=== PATIENT | male | born 1980 | race Caucasian/White ===

== ENCOUNTER → 2020-05-23 11:08 | Outpatient (BNVA) | payer OTHER, SELFPAY | PROVIDERS: PCP Hospitalist; Visit Provider Nurse Practitioner | DX: Z76.89 Persons encountering health services in other specified circumstances (principal) ==

== ENCOUNTER 2020-05-31 09:45 | Outpatient (REF) | payer OTHER, SELFPAY ==
[2020-05-31 10:47] LABS: Alanine Aminotransferase 53 U/L (0-40); Albumin Level 4.3 g/dL (3.5-5.0); Alkaline Phosphatase 103 U/L (39-117); Anion Gap 12 (12-20); Aspartate Amino Transferase 34 U/L (5-37); Bilirubin Total 0.6 mg/dL (0.0-1.0); Blood Urea Nitrogen 15 mg/dL (9-16); Calcium 8.9 mg/dL (8.4-10.2); Carbon Dioxide 26 mmol/L (22-29); Chloride 107 mmol/L (96-108); Estimated Glomerular Filt Rate > 60; Glucose Random 118 mg/dL (60-115); Potassium 4.4 mmol/l (3.3-5.1); Sodium 141 mmol/L (135-145); Total Protein 8.2 g/dL (6.5-8.0)
== END 2020-05-31 09:46 | disposition home or self-care (01) ==
LOC: HO.LAB 09:45
PROVIDERS: PCP Hospitalist; Visit Provider Nurse Practitioner
DX: R10.13 Epigastric pain (principal); R10.32 Left lower quadrant pain; K58.0 Irritable bowel syndrome with diarrhea
CPT/HCPCS: 80053

== ENCOUNTER 2020-06-01 08:04 | Outpatient (REF) | payer OTHER, SELFPAY ==
--- NOTE | 2020-06-01 08:10 | CT_ITS ---
EXAMINATION: CT ABDOMEN AND PELVIS WITH CONTRAST CLINICAL INFORMATION: Left lower quadrant pain. COMPARISON: None TECHNIQUE: Multidetector volumetric images were obtained from the superior aspect of the liver through the pubic symphysis following administration 85 mL of Omnipaque 350 intravenous contrast. Sagittal and coronal reformatted images were obtained on the technologist's workstation. Oral contrast: No This CT examination was performed using dose optimization techniques as appropriate, variously including the following: *Automated exposure control *Adjustment of mA and/or kV according to patient size (this includes techniques or standardized protocols for targeted exams where dose is matched to indication/reason for exam; i.e. extremities or head) *Use of iterative reconstruction technique DLP: 749 mGy-cm FINDINGS: LUNG BASES: The visualized lung bases are unremarkable. LIVER, GALLBLADDER, AND BILIARY TREE: Diffuse decreased attenuation without focal abnormality. PANCREAS: Unremarkable. SPLEEN: 12.2 cm without focal abnormality or significant change. ADRENAL GLANDS: Unremarkable. KIDNEYS AND URETERS: Unremarkable. BLADDER: Unremarkable. GASTROINTESTINAL TRACT: The stomach, small bowel, appendix and large bowel are unremarkable. ABDOMINAL WALL: No significant hernia is appreciated. LYMPH NODES: Normal. VASCULAR: Unremarkable. PELVIC VISCERA: Unremarkable. OSSEOUS STRUCTURES: Unremarkable. CT/CT abdomen pelvis w con IMPRESSION: Hepatic steatosis without other significant abnormality or change.
[2020-06-01] MEDS: iohexoL 350 MG/ML 100 ML INFUS..BTL IV (11:21)
[2020-06-01] MEDS: Barium Sulfate Oral (Berry) 450 ML ORAL.SUSP 900 ML PO (11:22)
== END 2020-06-01 08:05 | disposition home or self-care (01) ==
LOC: HO.CT 08:04
PROVIDERS: Visit Provider Nurse Practitioner
DX: R10.32 Left lower quadrant pain (principal)
CPT/HCPCS: 74177; Q9967

== ENCOUNTER → 2020-06-29 09:09 | Outpatient (BNVA) | payer OTHER, SELFPAY | PROVIDERS: PCP Hospitalist; Visit Provider Nurse Practitioner | DX: Z76.89 Persons encountering health services in other specified circumstances (principal) ==

== ENCOUNTER → 2020-07-21 10:34 | Outpatient (BNVA) | payer OTHER, SELFPAY | PROVIDERS: PCP Hospitalist; Visit Provider Nurse Practitioner ==

== ENCOUNTER → 2020-08-11 10:48 | Outpatient (BNVA) | payer OTHER, SELFPAY | PROVIDERS: PCP Hospitalist; Visit Provider Nurse Practitioner | DX: K58.0 Irritable bowel syndrome with diarrhea (principal); R10.32 Left lower quadrant pain; R10.13 Epigastric pain ==

== ENCOUNTER → 2020-09-22 10:33 | Outpatient (BNVA) | payer OTHER, SELFPAY | PROVIDERS: PCP Hospitalist; Visit Provider Nurse Practitioner ==

== ENCOUNTER → 2020-10-13 11:05 | Outpatient (BNVA) | payer OTHER, SELFPAY | PROVIDERS: PCP Hospitalist; Visit Provider Nurse Practitioner ==

== ENCOUNTER → 2020-11-09 08:11 | Outpatient (BNVA) | payer OTHER, SELFPAY | PROVIDERS: PCP Hospitalist; Visit Provider Surgery ==

== ENCOUNTER 2020-11-11 08:47 | Outpatient (REF) | payer BC, SELFPAY ==
--- NOTE | ~2020-11-11 | XR_ITS ---
EXAMINATION: XR CHEST CLINICAL INFORMATION: Morbid obesity COMPARISON: August 17, 2014 TECHNIQUE: 2 views of the chest were obtained. FINDINGS: No significant abnormality is noted involving the heart, lungs, mediastinum, bony thorax or soft tissues. XR/XR chest 2V IMPRESSION: No acute disease.
--- NOTE | 2020-11-11 08:58 | ECG_ITS ---
Test Reason : E66.01 Blood Pressure : / mmHG Vent. Rate : 064 BPM Atrial Rate : 064 BPM P-R Int : 174 ms QRS Dur : 096 ms QT Int : 412 ms P-R-T Axes : 046 032 021 degrees QTc Int : 425 ms Normal sinus rhythm Incomplete right bundle branch block Borderline ECG When compared to the previous EKG of No significant changes seen Referred By: Darius Arce Electronically Signed By:TAMMY RUBIO MD
[2020-11-11 09:58] LABS: MANUAL DIFF FLAG NO
[2020-11-11 10:08] LABS: Basophils Percent Auto 0.3 % (0-2); Eosinophils Absolute Auto 0.2 X10*3/uL (0.0-0.4); Eosinophils Percent Auto 3.5 % (0-4); Hematocrit 44.5 % (42-52); Hemoglobin 13.9 g/dl (14.0-18.0); Imm Gran Abs Auto 0.02 X10*3/uL (0.00-0.03); Imm Gran Pct Auto 0.3 % (0.0-0.4); Lymphocytes Absolute Auto 2.6 X10*3/uL (1.2-4.9); Lymphocytes Percent Auto 38.1 % (20-40); Mean Corpuscular HGB Conc 31.2 g/dl (31.0-36.0); Mean Corpuscular Hemoglobin 26.2 pg (27.0-33.0); Mean Platelet Volume 10.9 fL (9.4-12.4); Monocytes Absolute Auto 0.5 X10*3/uL (0.1-1.2); Monocytes Percent Auto 7.4 % (2-11); Neutrophils Absolute Auto 3.4 X10*3/uL (2.0-8.3); Neutrophils Percent Auto 50.4 % (45-73); Platelet Count 258 X10*3/uL (160-400); Red Cell Distribution Width 12.5 % (11.0-16.0); White Blood Count 6.8 X10*3/uL (4.8-10.8)
[2020-11-11 10:26] LABS: Alanine Aminotransferase 43 U/L (0-40); Albumin Level 4.1 g/dL (3.5-5.0); Alkaline Phosphatase 120 U/L (39-117); Anion Gap 13 (12-20); Aspartate Amino Transferase 36 U/L (5-37); Bilirubin Total 0.6 mg/dL (0.0-1.0); Blood Urea Nitrogen 11 mg/dL (9-16); Calcium 8.9 mg/dL (8.4-10.2); Carbon Dioxide 25 mmol/L (22-29); Chloride 108 mmol/L (96-108); Cholesterol 136 mg/dL; Estimated Glomerular Filt Rate > 60; Glucose Random 110 mg/dL (60-115); HDL Cholesterol 36 mg/dL; Iron 50 mcg/dL (45-160); LDL Cholesterol Calculated 83 mg/dl; Percent Iron Saturation 18 % (15-50); Potassium 4.8 mmol/L (3.3-5.1); Sodium 141 mmol/L (135-145); Total Iron Binding Capacity 279 mcg/dL (228-428); Total Protein 7.9 g/dL (6.5-8.0); Triglycerides 86 mg/dL; Unsaturated Iron Binding 229 ug/dL
[2020-11-11 10:31] LABS: Ferritin 318 ng/mL (20-250); TSH reflex Free T4 2.14 uIU/mL (0.32-4.0)
[2020-11-11 10:41] LABS: Estimated Average Glucose 126 mg/dL
[2020-11-11 10:45] LABS: Folate 14.1 ng/mL (> or = 4.0); Vitamin B12 447 pg/mL (200-900)
[2020-11-12 09:17] LABS: Insulin Level Total 20.2 uIU/mL
[2020-11-12 13:22] LABS: H Pylori Breath Test NOT DETECTED (NOT DETECTED)
[2020-11-15 02:46] LABS: Zinc 63 mcg/dL (60-130)
[2020-11-15 10:02] LABS: Calcium (PTHI) 9.2 mg/dL (8.6-10.3); PTHI 70 pg/mL (14-64)
[2020-11-16 11:03] LABS: Vitamin A 29 mcg/dL (38-98)
[2020-11-16 16:22] LABS: Vitamin B1 9 nmol/L (8-30)
== END 2020-11-11 08:48 | disposition home or self-care (01) ==
LOC: HO.LAB 08:47
PROVIDERS: PCP Hospitalist; Visit Provider Surgery
DX: E66.01 Morbid (severe) obesity due to excess calories (principal); K21.9 Gastro-esophageal reflux disease without esophagitis
CPT/HCPCS: 36415; 71046; 80053; 80061; 82306; 82607; 82728; 82746; 83013; 83036; 83525; 83540; 83970; 84425; 84443; 84590; 84630; 85025; 86140; 93005; 99211

== ENCOUNTER → 2020-11-14 09:51 | Outpatient (REF) | payer BC, OTHER, SELFPAY | LOC: HO.SL 09:51 | PROVIDERS: PCP Hospitalist; Visit Provider Family Medicine | DX: R06.83 Snoring (principal) | CPT/HCPCS: 95806 ==

== ENCOUNTER → 2020-11-18 11:28 | Outpatient (BNVA) | payer OTHER, SELFPAY | PROVIDERS: PCP Hospitalist; Referring Provider Hospitalist; Visit Provider Physician Assistant ==

== ENCOUNTER → 2020-11-25 12:33 | Outpatient (BNVA) | payer OTHER, SELFPAY | PROVIDERS: PCP Hospitalist; Visit Provider Physician Assistant ==

== ENCOUNTER → 2020-12-01 08:06 | Outpatient (BNVA) | payer BC, OTHER, SELFPAY | PROVIDERS: PCP Hospitalist; Visit Provider Dietitian, Registered | DX: E66.01 Morbid (severe) obesity due to excess calories (principal); Z68.41 Body mass index [BMI] 40.0-44.9, adult | CPT/HCPCS: 97802 ==

== ENCOUNTER → 2020-12-02 11:46 | Outpatient (BNVA) | payer OTHER, SELFPAY | PROVIDERS: PCP Hospitalist; Referring Provider Hospitalist; Visit Provider Physician Assistant ==

== ENCOUNTER 2020-12-06 08:16 | Outpatient (REF) | payer BC, OTHER, SELFPAY ==
--- NOTE | ~2020-12-06 | FL_ITS ---
EXAMINATION: XR GI SERIES CLINICAL INFORMATION: EXAMINATION: FLUOROSCOPY UPPER GI WITH AIR CLINICAL INFORMATION: Obesity due to excess calories. COMPARISON: None. TECHNIQUE: A double contrast examination was performed. Fluoroscopic evaluation and multiple spot films were obtained. FINDINGS: There is normal esophageal mucosa and motility. No reflux or hiatal hernia. Barium flows easily through a normal-appearing stomach, duodenal bulb, and sweep without evidence of ulcer or inflammation. FLUOROSCOPY TIME: 0.8 minutes. IMAGES: 17 spot images obtained. FL/FL upper GI series IMPRESSION: Unremarkable examination.
--- NOTE | ~2020-12-06 | US_ITS ---
EXAMINATION: US COMPLETE ABDOMEN WITH LIVER ELASTOGRAPHY CLINICAL INFORMATION: Obesity COMPARISON: Previous abdominal ultrasound August [address] of the abdomen and pelvis most recent May 2020 TECHNIQUE: Real-time imaging of the abdominal viscera. Noninvasive ultrasound liver fibrosis assessment is performed using Eriberto ElastPQ point quantification shear wave elastography (pSWE) with a C5-2 MHz transducer. Multiple elastography samples are obtained. FINDINGS: PANCREAS: Normal. ABDOMINAL AORTA: The proximal and middle aortic segments are normal in caliber. Distal abdominal aorta is not well visualized. INFERIOR VENA CAVA: Visualized portions are normal. LIVER: The liver is upper normal in size. Liver echotexture is increased. The contour of the liver is normal.. No focal lesion or intrahepatic biliary duct dilatation. The right lobe measures 17 cm in length. The left lobe measures 16 cm in length. Portal flow is normal/hepatopedal Shear wave liver elastography median stiffness is 1.6 m/s (reference: normal median stiffness is 1.3 m/s or less). IQR/median stiffness to assess sampling precision is 0.12 (reference: good quality data set is IQR/median stiffness of 0.15 or less). GALLBLADDER: Normal. The gallbladder is physiologically distended without evidence of stones, sludge, polyps, wall thickening or pericholecystic fluid. COMMON BILE DUCT: Normal in caliber measuring 0.5 cm in diameter. RIGHT KIDNEY: Normal. No hydronephrosis. No renal calculi or focal parenchymal lesions. The kidney measures 12.3 cm in maximum dimension. LEFT KIDNEY: Normal. No hydronephrosis. No renal calculi or focal parenchymal lesions. The kidney measures 13.6 cm in maximum dimension. SPLEEN: Normal. The spleen measures 12.8 cm in maximum dimension. FREE FLUID: None. US/US abdomen comp w elastography IMPRESSION: 1. Impression: Upper normal-size echogenic liver suggestive of fatty infiltration. 2. Liver elastography: Adequate liver sampling. In the absence of other known clinical signs, rules out compensated advanced chronic liver disease. REFERENCE: Society of Radiologists in Ultrasound Liver Stiffness Thresholds (2020): LIVER STIFFNESS THRESHOLDS: *Liver Stiffness equal or less than 1.3 m/s: High probability of being normal. *Liver Stiffness less than 1.7 m/s: In the absence of other known clinical signs, rules out compensated advanced chronic liver disease. *Liver Stiffness 1.7-2.1 m/s: Suggestive of compensated advanced chronic liver disease but need further test for confirmation. *Liver Stiffness over 2.1 m/s: Rules in compensated advanced chronic liver disease. *Liver Stiffness over 2.4 m/s: Suggestive of clinically significant portal hypertension. QUALITY OF DATA SET: *IQR/Median value equal or less than 0.15 implies a quality data set. *IQR/Median value over 0.15 implies a poor quality data set. SIGNIFICANT CHANGE FROM PRIOR EXAM: Significant change if liver stiffness measurement is 10% or greater from prior exam. OTHER CONSIDERATIONS: The stage of liver fibrosis may be overestimated in the setting of acute hepatitis, liver inflammation, elevated liver function tests, hepatic vascular congestion, obstructive cholestasis, non-fasting state, and infiltrative diseases such as amyloidosis and lymphoma. In some patients with NAFLD, the liver stiffness thresholds for compensated advanced chronic liver disease may be lower. In causes other than viral hepatitis and NAFLD, liver stiffness thresholds are not well established.
== END 2020-12-06 08:17 | disposition home or self-care (01) ==
LOC: HO.US 08:16
PROVIDERS: PCP Hospitalist; Visit Provider Surgery
DX: Z01.818 Encounter for other preprocedural examination (principal); E66.01 Morbid (severe) obesity due to excess calories; K21.9 Gastro-esophageal reflux disease without esophagitis
CPT/HCPCS: 74240; 76705; 76981

== ENCOUNTER 2020-12-06 12:37 | Emergency (ER) | payer BC, MEDICAID, SELFPAY ==
--- NOTE | ~2020-12-06 | CT_ITS ---
EXAMINATION: CT ABDOMEN AND PELVIS WITHOUT CONTRAST Clinical inflammation: Right flank pain. Nausea and vomiting. No images obtained. Patient unable to stay still.
--- NOTE | ~2020-12-06 | CT_ITS ---
EXAMINATION: CT ABDOMEN AND PELVIS WITHOUT CONTRAST CLINICAL INFORMATION: Right lower quadrant pain. COMPARISON: CT abdomen pelvis December 06, 2020, June 01, 2020 TECHNIQUE: Multidetector volumetric imaging was performed from the superior aspect of the liver through the pubic symphysis. Sagittal and coronal reformatted images were obtained on the technologist's workstation. This CT examination was performed using dose optimization techniques as appropriate, variously including the following: *Automated exposure control *Adjustment of mA and/or kV according to patient size (this includes techniques or standardized protocols for targeted exams where dose is matched to indication/reason for exam; i.e. extremities or head) *Use of iterative reconstruction technique DLP: 1100 mGy-cm FINDINGS: There is barium within the colon. Most of this is within the right colon and transverse colon with small volume of the descending colon and pelvis. The spurring causes streak artifact through the study. LUNG BASES: The visualized lung bases are unremarkable. LIVER, GALLBLADDER, AND BILIARY TREE: Low attenuation of liver parenchyma due to fatty change. The gallbladder is unremarkable with no evidence of radiopaque gallstones, gallbladder wall thickening, or obvious pericholecystic inflammatory changes. PANCREAS: Unremarkable. SPLEEN: Unremarkable. ADRENAL GLANDS: Unremarkable. KIDNEYS AND URETERS: The kidneys are normal in size, shape, and attenuation. No hydronephrosis, hydroureter, or calculi seen. No perinephric stranding. BLADDER: Unremarkable. GASTROINTESTINAL TRACT: Barium in the colon limits study. The appendix is nonvisualized. There is no focal abnormality of the large or small bowel evident. No bowel obstruction. No dilated bowel loop. MESENTERY: No free air or free fluid. No inflammation. ABDOMINAL WALL: No significant hernia is appreciated. LYMPH NODES: Normal. VASCULAR: Unremarkable. PELVIC VISCERA: Unremarkable. OSSEOUS STRUCTURES: Unremarkable. CT/CT abdomen pelvis wo con IMPRESSION: 1. Limited exam by barium in colon causing streak artifact. There is no evidence of free air, free fluid or inflammation the mesentery. The appendix specifically is not seen however. No abnormality of the bowel loops demonstrated. 2. Diffuse fatty change of liver.
[2020-12-06 13:40] VITALS: BP 146/70; PULSE 63; RESP 18; TEMP 36.1; O2SAT 99; BMI 41.1
[2020-12-06 16:10] LABS: MANUAL DIFF FLAG NO
[2020-12-06 16:13] LABS: Glucose Urine UA NEG (NEG); Leukocyte Esterase Urine NEG (NEG); Nitrite Urine NEG (NEG); Specific Gravity - Urine 1.025 (1.005-1.025); Urine Blood NEG (NEG); Urine Ketones NEG (NEG); Urine Protein NEG (NEG-TRACE)
[2020-12-06 16:14] LABS: Appearance Urine CLEAR; Color Urine YELLOW
[2020-12-06 16:15] LABS: Basophils Percent Auto 0.3 % (0-2); Eosinophils Absolute Auto 0.1 X10*3/uL (0.0-0.4); Eosinophils Percent Auto 1.7 % (0-4); Hematocrit 45.7 % (42-52); Hemoglobin 14.5 g/dl (14.0-18.0); Imm Gran Abs Auto 0.03 X10*3/uL (0.00-0.03); Imm Gran Pct Auto 0.4 % (0.0-0.4); Lymphocytes Absolute Auto 2.5 X10*3/uL (1.2-4.9); Lymphocytes Percent Auto 32.8 % (20-40); Mean Corpuscular HGB Conc 31.7 g/dl (31.0-36.0); Mean Corpuscular Hemoglobin 26.6 pg (27.0-33.0); Mean Corpuscular Volume 83.9 fL (80-98); Monocytes Absolute Auto 0.5 X10*3/uL (0.1-1.2); Neutrophils Absolute Auto 4.5 X10*3/uL (2.0-8.3); Neutrophils Percent Auto 58.8 % (45-73); Platelet Count 246 X10*3/uL (160-400); Red Blood Count 5.45 X10*6/uL (4.60-5.80); Red Cell Distribution Width 12.6 % (11.0-16.0); White Blood Count 7.7 X10*3/uL (4.8-10.8)
[2020-12-06 16:35] LABS: Alanine Aminotransferase 70 U/L (0-40); Albumin Level 4.5 g/dL (3.5-5.0); Alkaline Phosphatase 110 U/L (39-117); Anion Gap 15 (12-20); Aspartate Amino Transferase 33 U/L (5-37); Bilirubin Direct 0.4 mg/dL (0.0-0.5); Blood Urea Nitrogen 16 mg/dL (9-16); Calcium 9.9 mg/dL (8.4-10.2); Carbon Dioxide 24 mmol/L (22-29); Chloride 107 mmol/L (96-108); Creatinine Clr Calc Pharmacy 160.2; Estimated Glomerular Filt Rate > 60; Glucose Random 88 mg/dL (60-115); Lipase 8 U/L (8-78); Potassium 4.5 mmol/L (3.3-5.1); Sodium 141 mmol/L (135-145); Total Protein 8.4 g/dL (6.5-8.0)
--- NOTE | 2020-12-06 17:48 | ED.GENADULT ---
HPI - General Adult General Chief complaint: General Medical Stated complaint: Flink pain Time Seen by Provider: 12/06/20 17:44 Source: patient Mode of arrival: ambulatory Limitations: no limitations History of Present Illness HPI narrative: 40 y/o male with history of IBS with diarrhea, GERD, esophagitis, obesity, chronic epigastric pain who presents to the ER from home c/o 8 days of nontraumatic right sided flank pain. He reports it radiates into the front of his abdomen on the right side starting today. He had 2 episodes of vomiting today. He has no current nausea. He denies fever or chills. No hematuria, dysuria, frequency or urgency. No states the pain is worse with movement and palpation. No diarrhea. No sick contacts. He had an upper GI series and RUQ U/S this morning that were unremarkable, only fatty infiltration of the liver. MD complaint: right sided flank pain Onset (ago): day(s) (8) Location: abdomen Radiation: abdomen (right side) Severity: moderate Severity scale (1-10): 7 Quality: aching Pain Consistency: constant Relieving factors: none Exacerbating factors: none Associated symptoms: denies other symptoms Treatments prior to arrival: none Related Data Home Medications Medication Instructions Recorded Confirmed eluxadoline 75 mg tablet See Rx Instructions PO .COMPLEX 08/11/20 11/09/20 tab Previous Rx's Medication Instructions Recorded hydrocortisone 2.5 % topical cream 1 appl VA BID PRN #30 g 05/23/20 with perineal applicator imipramine HCl 50 mg tablet 100 mg PO BEDTIME 30 Days #60 tab 09/22/20 pantoprazole 40 mg tablet,delayed 40 mg PO DAILY 30 Days #30 tab 11/30/20 release ondansetron 4 mg PO Q8H PRN #7 tab 12/06/20 Allergies Allergy/AdvReac Type Severity Reaction Status Date / Time tree and shrub pollen Allergy Mild Itchy Eyes Verified 11/25/20 12:42 Review of Systems Review of Systems: Constitutional: No Fever, No Chills ENT/Mouth: No sore throat, No Rhinorrhea, No Swallowing Difficulty Cardiovascular: No Chest Pain, No SOB, No Orthopnea, No Edema Respiratory: No Cough, No Sputum, No Wheezing, No dyspnea Gastrointestinal: + Nausea, + Vomiting, No Diarrhea, + abdominal Pain, No Hematochezia, No Melena Genitourinary: No Dysuria, No Urinary Frequency, No Hematuria Musculoskeletal: No joint pain, No Myalgias Skin: No Skin Lesions, No rash Neuro: No Weakness, No Numbness, No Dizziness, No Headache Heme/Lymph: No Bruising, No Lymphadenopathy PMFSH Past Medical History Attestation statement: The following information was validated with the patient. Surgical History History of artificial eye lens Hx of colonoscopy Hx of endoscopy Family History Family History Father Headache, migraine Mother HTN (hypertension) Paternal Grandmother Diabetes Paternal Aunt Cancer Social History Social History Household Members: Family Alcohol intake: current Alcohol intake frequency: does not drink Advance Directives: No Advance Directives Information Provided: No Current occupational status: employed Current occupation: [employer] Physical Exam Vital Signs: Vital Signs: Last Vital Signs Temp 97.6 F 12/06/20 20:25 Pulse 74 12/06/20 20:25 Resp 16 12/06/20 20:27 BP 135/77 12/06/20 20:25 Pulse Ox 99 12/06/20 20:25 Body Mass Index 41.1 Appearance: Alert. Oriented X3. No acute distress. Eyes: Pupils equal, round and reactive to light. ENT: Pharynx normal. Neck: Normal inspection. Neck supple. CVS: Normal heart rate and rhythm. Pulses normal. Respiratory: No respiratory distress. Breath sounds normal. Abdomen: Soft with right sided tenderness from CVA wrapping around to RLQ, no rebound or guarding. +BS x4 Skin: Skin warm and dry. Normal skin color. Normal skin turgor. No rashes. Extremities: No lower extremity edema. Neuro: Oriented X 3. No motor deficit. No sensory deficit. Course Course Course Narrative: 40 y/o male presenting with right flank pain x8 days, worse today with 2 episodes of vomiting today. Will check UA and labs. Had UGI series and RUQ U/S today - unremarkable. Doubt appendicitis given his symptoms have been going on for 8 days, however he is tender on exam. Will get CT scan for further evaluation. Reevaluation(s) Reevaluation #1: UA negative. No leukocytosis. CT scan with barium present so limiting evaluation, appendix not visualized, no abnormal bowel loops, free air, free fluid or mesenteric inflammation. Patient's pain is improved after toadol and Vic[place] however etiology is not clear. He appears well, non-toxic. Results were d/w the patient. He is encouraged to rest, stay hydrated and f/u with his PCP and GI provider. There is no indication for admission to the hospital at this time. He was instructed to return to the ER [facility] if pain worsens or if he develops fever as the appendix was not visualized on CT. Patient expressed understanding and agrees with plan. Medical Decision Making Lab Data Result diagrams: 12/06/20 15:58 12/06/20 15:58 Labs: Lab Results 12/06/20 12/06/20 12/06/20 Range/Units 15:57 15:58 15:58 WBC 7.7 (4.8-10.8) X10*3/uL RBC 5.45 (4.60-5.80) X10*6/uL Hgb 14.5 (14.0-18.0) g/dl Hct 45.7 (42-52) % MCV 83.9 (80-98) fL MCH 26.6 L (27.0-33.0) pg MCHC 31.7 (31.0-36.0) g/dl RDW 12.6 (11.0-16.0) % Plt Count 246 (160-400) X10*3/uL MPV 11.0 (9.4-12.4) fL Immature Gran % (Auto) 0.4 (0.0-0.4) % Neut % (Auto) 58.8 (45-73) % Lymph % (Auto) 32.8 (20-40) % Cocke % (Auto) 6.0 (2-11) % Eos % (Auto) 1.7 (0-4) % Baso % (Auto) 0.3 (0-2) % Lymph # (Auto) 2.5 (1.2-4.9) X10*3/uL [place]ke # (Auto) 0.5 (0.1-1.2) X10*3/uL Eos # (Auto) 0.1 (0.0-0.4) X10*3/uL Baso # (Auto) 0.0 (0.0-0.2) X10*3/uL Abs Immat Gran (auto) 0.03 (0.00-0.03) X10*3/uL Absolute Neuts (auto) 4.5 (2.0-8.3) X10*3/uL Absolute Nucleated RBC 0.000 (0.0-0.012) X10*3/uL Nucleated RBC % (auto) 0.0 (0.0-0.2) /100WBC Sodium 141 (135-145) mmol/L Potassium 4.5 (3.3-5.1) mmol/L Chloride 107 (96-108) mmol/L Carbon Dioxide 24 (22-29) mmol/L Anion Gap 15 (12-20) BUN 16 (9-16) mg/dL Creatinine 0.74 (0.5-1.4) mg/dL Estim Creat Clear Calc 160.2 Estimated GFR > 60 Random Glucose 88 (60-115) mg/dL Calcium 9.9 D (8.4-10.2) mg/dL Total Bilirubin 1.0 (0.0-1.0) mg/dL Direct Bilirubin 0.4 (0.0-0.5) mg/dL AST 33 (5-37) U/L ALT 70 H (0-40) U/L Alkaline Phosphatase 110 (39-117) U/L Total Protein 8.4 H (6.5-8.0) g/dL Albumin 4.5 (3.5-5.0) g/dL Lipase 8 (8-78) U/L Urine Color YELLOW Urine Appearance CLEAR Urine pH 6.0 (5.0-8.0) Ur Specific [place] 1.025 (1.005-1.025) Urine Protein NEG (NEG-TRACE) MG/DL Urine Glucose (UA) NEG (NEG) MG/DL Urine Ketones NEG (NEG) MG/DL Urine Blood NEG (NEG) Urine Nitrite NEG (NEG) Ur Leukocyte Esterase NEG (NEG) Discharge Plan Discharge Clinical Impression: Right flank pain Patient Disposition: Home, Self-Care Instructions: Acute Abdominal Pain (ED), Flank Pain (ED) Additional Instructions: A cause of your pain was not found today. Recommend rest and staying hydrated, drink plenty of water. Take Tylenol and/or Motrin as needed for pain. If you develop worsening pain, vomiting or a fever come back to the ER right away for evaluation. Recommend following up with your GI doctor tomorrow. Prescriptions: New ondansetron 4 mg tablet,disintegrating 4 mg PO Q8H PRN (Reason: nausea and vomiting) Qty: 7 RF: 0 No Action pantoprazole 40 mg tablet,delayed release (DR/EC) 40 mg PO DAILY 30 Days Qty: 30 RF: 3 Viberzi 75 mg tablet See Rx Instructions PO .COMPLEX RF: 0 imipramine HCl 50 mg tablet 100 mg PO BEDTIME 30 Days Qty: 60 RF: 6 hydrocortisone [Anusol-HC] 2.5 % cream with perineal applicator 1 appl VA BID PRN (Reason: hemorrhoids) Qty: 30 RF: 0 Referrals: Janeen Jones ANP-C [Nurse Practitioner] - 1 day (right flank and RLQ pain) Stand Alone Forms: Work/School Release Interventions: ED Discharge Assessment Last Done: 12/06/20 22:04 Discharge Date/Time: 12/06/20 22:04
[2020-12-06] MEDS: HYDROcodone Bit/Acetam 5/325 TABLET 1 TAB PO (19:02)
[2020-12-06] MEDS: Ketorolac Tromethamine 60 MG/2 ML VIAL IM (19:03)
[2020-12-06 20:25] VITALS: BP 135/77; PULSE 74; RESP 16; TEMP 36.4; O2SAT 99
[2020-12-06 20:26] VITALS: RESP 16
[2020-12-06 20:27] VITALS: RESP 16
== END 2020-12-06 22:04 | disposition home or self-care (01) ==
PROVIDERS: Emergency Provider Emergency Medicine; PCP Hospitalist
DX: R10.9 Unspecified abdominal pain (principal); K58.0 Irritable bowel syndrome with diarrhea; Z79.899 Other long term (current) drug therapy
CPT/HCPCS: 36415; 74176; 80048; 80076; 81003; 83690; 85025; 96372; 99284; J1885

== ENCOUNTER → 2020-12-13 15:01 | Outpatient (BNVA) | payer BC, OTHER, SELFPAY | PROVIDERS: PCP Family Medicine; Visit Provider Internal Medicine | DX: E66.01 Morbid (severe) obesity due to excess calories (principal); R06.83 Snoring; G47.30 Sleep apnea, unspecified | CPT/HCPCS: 99202 ==

== ENCOUNTER → 2020-12-16 09:44 | Outpatient (REF) | payer BC, OTHER, SELFPAY ==
--- NOTE | 2020-12-16 09:46 | CA_ITS ---
Acquisition Time: 2020-12-16 10:03:01 Total Exercise Time: 00:04:31 Test Indications: ABN EKG Medications: SEE CHART Protocol: JASSI Max HR: 157 BPM 86% of Pred: 181 BPM Max BP: 200/080 mmHG Max Work Load: 6.4 METS Exercise stress test using Jassi protocol total of 4 min 31 sec. METS 5.40 and MAPHR up to 93 %. Pt became SOB and test ended. EKG with no arrhythmias, however horizontal ST depressions seen laterally and inferiorly. Hypertensive response to exercise Test reviewed with Dr. Pérez. Communication sent to ordering provider, further testing needed Referred By: Darius Arce Overread By: Renee Butcher NP
== END ==
LOC: HO.CARD 09:44
PROVIDERS: Visit Provider Surgery
DX: Z01.818 Encounter for other preprocedural examination (principal); R06.02 Shortness of breath; I10 Essential (primary) hypertension; I45.10 Unspecified right bundle-branch block; R94.31 Abnormal electrocardiogram [ECG] [EKG]
CPT/HCPCS: 93017

== ENCOUNTER → 2020-12-20 08:05 | Outpatient (BNVA) | payer BC, OTHER, SELFPAY | PROVIDERS: PCP Hospitalist; Visit Provider Dietitian, Registered | DX: E66.01 Morbid (severe) obesity due to excess calories (principal); Z68.41 Body mass index [BMI] 40.0-44.9, adult | CPT/HCPCS: 97803 ==

== ENCOUNTER → 2020-12-23 10:01 | Outpatient (BNVA) | payer BC, OTHER, SELFPAY | PROVIDERS: PCP Hospitalist; Visit Provider Physician Assistant ==

== ENCOUNTER → 2021-01-02 15:01 | Outpatient (BNVA) | payer OTHER, SELFPAY | PROVIDERS: PCP Hospitalist; Visit Provider Nurse Practitioner ==

== ENCOUNTER → 2021-01-27 07:19 | Outpatient (BNVA) | payer BC, OTHER, SELFPAY | PROVIDERS: PCP Hospitalist; Visit Provider Surgery ==

== ENCOUNTER → 2021-02-09 12:31 | Outpatient (REF) | payer BC, OTHER, SELFPAY ==
--- NOTE | 2021-02-09 12:35 | CA_ITS ---
Transthoracic Echocardiogram Patient (Last, First, Middle): Renato Jenkins Katlyn Gender: Male Date of : 1980 Age: 40 Procedure Date: 02/09/2021 Procedure Type: Transthoracic Echocardiogram Location: OP Height: 167.64 cm Weight: 104.78 kg BSA: 2.13 m2 Heart Rate: bpm BP: 128 / 62 mmHg Professor Of Physical Education: DSG Referring MD: Darius Arce MD Symptoms: SOB, HTN, PRE OP Study Quality: Fair ECG Rhythm: Sinus Conclusions: - The left ventricular systolic function is normal. The calculated ejection fraction is 64% by biplane method. - No obvious valvular pathology seen on this study. Findings Left Ventricle Normal left ventricular cavity size. There is normal left ventricular wall thickness. The left ventricular systolic function is normal. The calculated ejection fraction is 64% by biplane method. There is no evidence of regional wall motion abnormalities. Diastolic function is normal for age. Right Ventricle Normal right ventricular cavity size and systolic function. Atria Both atria are normal in size. Aortic Valve There is a normal trileaflet aortic valve. There is no aortic valve stenosis. There is no aortic valve regurgitation. Mitral Valve The mitral valve appears normal. There is no mitral valve regurgitation. There is no mitral valve stenosis. Pulmonic Valve The pulmonic valve was not well visualized. Tricuspid Valve Normal tricuspid valve structure. There is mild tricuspid valve regurgitation. The pulmonary artery systolic pressure is normal. Great Vessels The asc aorta and aortic arch are normal in size. Venous The inferior vena cava was not well visualized. Pericardium/Pleural There is no evidence of pericardial effusion. Prior Study Comparison No prior study available for comparison. Recommendations, Care & Conclusions No obvious valvular pathology seen on this study. Measurements 2D Linear Measurements IVSd: 0.76 0.6-0.9/0.6-1.0 cm LVIDd: 5.11 3.9-5.3/4.2-5.9 cm LVIDd Index: 2.40 2.4-3.2/2.2-3.1 cm/m2 LVIDs: 3.34 2.0-3.6 cm LVPWd: 0.98 0.7-1.1 cm Ao Root: 3.20 2.1-3.5 cm LA Diam: 3.30 2.7-3.8/3.0-4.0 cm LAIDs Index: 1.55 1.5-2.3 cm/m2 LV Mass: 196.09 67-162/88-224 g LV Mass Index: 92.06 43-95/49-115 g/m2 LVOT Diam: 2.10 3.0+(-)1.3 cm 2D Systolic Function EF 4C: 55.40 >55% EF 2C: 70.10 >55% EF BiP: 63.70 >55% Mitral Valve MV Pk E: 1.07 MV PK A: 0.35 MV Decel Time: 203.00 E/A: 3.10 E'Lateral: 12.90 E'Medial: 8.81 E/E' Med: 12.10 E/E' Lat: 8.30 PHT: 59.00 MVA PHT: 3.73 Decel [place]: 5.24 Aortic Valve AoV Pk Carlos Enrique: 1.22 AoV Pk Grad: 6.00 LVOT LVOT Pk Carlos Enrique: 0.97 LVOT Mn Carlos Enrique: 0.53 LVOT VTI: 0.21 LVOT Pk Grad: 4.00 LVOT Mn Grad: 1.00 LVOT Diam: 2.10 LVOT Area: 3.46 Diastolic Function MV Pk E: 1.07 MV Pk A: 0.35 E/A: 3.10 E'Medial: 8.81 E/E' Med: 12.10 E' Laterial: 12.90 E/E' Lat: 8.30 Right Ventricle TAPSE (mm): 2.54 Tricuspid Valve TR Pk Carlos Enrique: 2.39 TR Pk Grad: 23.00 RA Press: 3.00 RVSP: 26.00 Great Vessels Aorta Ao Root-2D: 3.20 2.0-3.7 cm Ao Asc: 2.50 2.1-3.4 cm Updated in Other Vendor System with Status of Final Zack Sun MD electronically signed on 02/11/2021 3:12:21 PM with status of Final
== END ==
LOC: HO.CARD 12:31
PROVIDERS: PCP Hospitalist; Visit Provider Surgery
DX: Z01.818 Encounter for other preprocedural examination (principal); R06.02 Shortness of breath; I10 Essential (primary) hypertension
CPT/HCPCS: 93306

== ENCOUNTER → 2021-02-14 08:09 | Outpatient (REF) | payer BC, OTHER, SELFPAY ==
--- NOTE | ~2021-02-14 | NM_ITS ---
EXERCISE MYOCARDIAL PERFUSION STUDY INDICATION: Preoperative cardiovascular evaluation TECHNIQUE: The patient was brought in for an exercise perfusion study on 02/14/2021. Patient performed exercise as per Woody protocol and was injected 35 mCi of sestamibi once target heart rate was achieved. Images were obtained using the SPECT gamma camera interlaced with the gating device. Images were obtained in supine position. Resting perfusion study was performed on 02/15/2021. Patient was administered 35 mCi of sestamibi intravenously at rest. Images were then obtained in supine position. Total DLP 126mGy-cm. Images were processed with the software and compared side to side in short axis, horizontal long axis and vertical long axis views. FINDINGS: Raw images were reviewed. The stress perfusion study showed no significant perfusion abnormality in the uncorrected images. With CT attenuation correction, there is a suggestion of decreased uptake in the anterior wall, parts of septum but most likely this is artifactual. The gated study shows normal LV systolic function with calculated LVEF of 62%. LV cavity is normal in size. The gated study shows normal wall thickening and contraction of segments. Resting study shows diminished tracer uptake in the anterior wall, inferior wall which actually gets given worse with CT attenuation correction. These are all most likely artifactual in nature. Gating at rest reveals normal wall motion with ejection fraction at 69%. The findings are consistent with no definite reversible or fixed perfusion defects. NM/NM cardiolite stress test IMPRESSION: 1. Myocardial perfusion imaging study shows likely normal perfusion. 2. Gated LVEF is 62% during stress and 69% during rest. 3. Transient ischemic dilatation not present. EKG component of the test reported separately.
--- NOTE | 2021-02-14 08:00 | CA_ITS ---
Acquisition Time: 2021-02-14 08:20:36 Total Exercise Time: 00:08:31 Test Indications: Abnormal Treadmill Test Medications: PANTOPRAZOLE IMIPRAMINE Protocol: JASSI Max HR: 157 BPM 86% of Pred: 181 BPM Max BP: 162/060 mmHG Max Work Load: 10.1 METS Exercise stress test with exercise 8 min 31 sec of Jassi protocol, without anginal symptoms, without arrythmia, with normotensive response to exercise, with artifqact at peak exercise, with borderline horizontal ST depression leads II, V4-V6 and borderline downsloping ST depression with T wave inversion lead III, aVF with gradual improvement in recovery. Nuclear images pending. Test reviewed with Dr Pérez. Referred By: Darius Arce Overread By: BRISA JUNIOR
== END ==
LOC: HO.CARD 08:09
PROVIDERS: Visit Provider Surgery
DX: Z01.818 Encounter for other preprocedural examination (principal); R06.02 Shortness of breath; I10 Essential (primary) hypertension; R94.39 Abnormal result of other cardiovascular function study
CPT/HCPCS: 78452; 93017; A9500

== ENCOUNTER → 2021-02-15 12:59 | Outpatient (BNVA) | payer BC, OTHER, SELFPAY | PROVIDERS: PCP Hospitalist; Referring Provider Hospitalist; Visit Provider Internal Medicine Cardiovascular Disease | DX: Z01.810 Encounter for preprocedural cardiovascular examination (principal) | CPT/HCPCS: 93005 ==

== ENCOUNTER 2021-02-16 12:47 | Inpatient (IN) | payer BC, OTHER, SELFPAY ==
[2021-01-27 10:10] VITALS: BMI 38.5
[2021-01-31 09:02] LABS: MANUAL DIFF FLAG NO
[2021-01-31 09:10] LABS: INTERNATIONAL NORM RATIO 1.1 (0.9-1.1); Prothrombin Time 12.2 SEC (9.9-13.0)
[2021-01-31 09:13] LABS: Partial Thromboplastin Time 38.3 SEC (24.1-38.0)
[2021-01-31 09:17] LABS: Basophils Percent Auto 0.3 % (0-2); Eosinophils Absolute Auto 0.2 X10*3/uL (0.0-0.4); Eosinophils Percent Auto 2.4 % (0-4); Hematocrit 44.1 % (42-52); Hemoglobin 14.2 g/dl (14.0-18.0); Imm Gran Abs Auto 0.02 X10*3/uL (0.00-0.03); Imm Gran Pct Auto 0.3 % (0.0-0.4); Lymphocytes Absolute Auto 2.2 X10*3/uL (1.2-4.9); Lymphocytes Percent Auto 35.9 % (20-40); Mean Corpuscular HGB Conc 32.2 g/dl (31.0-36.0); Mean Corpuscular Hemoglobin 26.6 pg (27.0-33.0); Mean Corpuscular Volume 82.6 fL (80-98); Mean Platelet Volume 10.7 fL (9.4-12.4); Monocytes Absolute Auto 0.5 X10*3/uL (0.1-1.2); Monocytes Percent Auto 8.2 % (2-11); Neutrophils Absolute Auto 3.3 X10*3/uL (2.0-8.3); Neutrophils Percent Auto 52.9 % (45-73); Platelet Count 259 X10*3/uL (160-400); Red Blood Count 5.34 X10*6/uL (4.60-5.80); Red Cell Distribution Width 12.1 % (11.0-16.0); White Blood Count 6.2 X10*3/uL (4.8-10.8)
[2021-01-31 09:24] LABS: Alanine Aminotransferase 30 U/L (0-40); Albumin Level 4.3 g/dL (3.5-5.0); Alkaline Phosphatase 108 U/L (39-117); Anion Gap 11 (12-20); Aspartate Amino Transferase 20 U/L (5-37); Blood Urea Nitrogen 16 mg/dL (9-16); C Reactive Protein 2.31 mg/dL (< or = 0.50); Calcium 9.5 mg/dL (8.4-10.2); Carbon Dioxide 26 mmol/L (22-29); Chloride 106 mmol/L (96-108); Cholesterol 126 mg/dL; Creatinine Clr Calc Pharmacy 165.9; Estimated Glomerular Filt Rate > 60; Glucose Random 94 mg/dL (60-115); HDL Cholesterol 34 mg/dL; LDL Cholesterol Calculated 81 mg/dl; Potassium 4.2 mmol/L (3.3-5.1); Sodium 139 mmol/L (135-145); Triglycerides 55 mg/dL
[2021-01-31 09:40] LABS: TSH reflex Free T4 1.44 uIU/mL (0.32-4.0)
[2021-01-31 14:28] LABS: Estimated Average Glucose 105 mg/dL; Hemoglobin A1c % 5.3 %
[2021-02-01 22:36] LABS: Insulin Level Total 10.6 uIU/mL
--- NOTE | 2021-02-15 10:59 | P.CONAN_ITS ---
Documented by User: Jenny Davis NP 02/15/21 14:25 HPI - Anesthesia Eval Consult details Narrative: 40yo M for Gastrectomy Sleeve, EGD, Poss Diaphragmatic Hernia, Poss Ventral Hernia, Poss open + exercise stress 12/2020. 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 No cardiac clearance. Repeat stress 02/14 (nuc images pending) also positive. Dr Raimundo duke notified (Bryanna), pt needs cardiac clearance. 02/15/21 - Per T/C with Dr Pérez, pt is cleared to proceed with bariatric surgery. Nuc images and final clearance note pending. Case reviewed with Dr Roseann GREENWOOD Active Problems Active Problems: All Active Problems (Updated 01/27/21 @ 11:36 by Darius Arce MD) Nausea (Acute) Epigastric pain (Acute) Irritable bowel syndrome with diarrhea (Acute) LLQ pain (Acute) Well adult exam (Acute) Morbid obesity (Acute) GERD (gastroesophageal reflux disease) (Acute) Snoring (Acute) Erosive esophagitis (Acute) Adjustment disorder, unspecified (Acute) Sleep apnea (Acute) Vitamin D deficiency (Acute) Vitamin B12 deficiency (Acute) Vitamin A deficiency (Acute) Abnormal EKG (Acute) RBBB (Acute) Abnormal stress test (Acute) Past Medical History Medical History COVID-19 vaccine series completed GERD (gastroesophageal reflux disease) IBS (irritable bowel syndrome) Incomplete right bundle branch block (RBBB) JAMESON (obstructive sleep apnea) Family History Family History Father Headache, migraine Mother HTN (hypertension) Paternal Grandmother Diabetes Paternal Aunt Cancer Surgical History Surgical History History of artificial eye lens Hx of colonoscopy Hx of endoscopy Social History Social History Household Members: Family Are you a primary rental boats caretaker to a significant other at home: No Do you presently have visiting nurse or other home services: No Alcohol intake: current Alcohol intake frequency: does not drink Patient Tobacco Use Status: Never used Tobacco Current occupational status: employed Current occupation: [email or web address] Allergies Allergy/AdvReac Type Severity Reaction Status Date / Time tree and shrub pollen Allergy Mild Itchy Eyes Verified 02/15/21 13:11 Exam Exam Date and Time: February 15, 2021 1059 Height,Weight and Vital Signs: Height 5 ft 6 in Weight 108.409 kg Pertinent Lab Results Pertinent Lab Results: Laboratory Tests 01/31/21 01/31/21 01/31/21 08:45 08:45 08:45 WBC 6.2 RBC 5.34 Hgb 14.2 Hct 44.1 MCV 82.6 MCH 26.6 L MCHC 32.2 RDW 12.1 Plt Count 259 MPV 10.7 Immature Gran % (Auto) 0.3 Neut % (Auto) 52.9 Lymph % (Auto) 35.9 [place] % (Auto) 8.2 Eos % (Auto) 2.4 Baso % (Auto) 0.3 Lymph # (Auto) 2.2 [place] # (Auto) 0.5 Eos # (Auto) 0.2 Baso # (Auto) 0.0 Abs Immat Gran (auto) 0.02 Absolute Neuts (auto) 3.3 Absolute Nucleated RBC 0.000 Nucleated RBC % (auto) 0.0 PT 12.2 INR 1.1 APTT 38.3 H Sodium 139 Potassium 4.2 Chloride 106 Carbon Dioxide 26 Anion Gap 11 L BUN 16 Creatinine 0.69 Estim Creat Clear Calc 165.9 Estimated GFR > 60 Random Glucose 94 Estimat Average Glucose Hemoglobin A1c % Total Insulin Calcium 9.5 Total Bilirubin 1.0 AST 20 ALT 30 Alkaline Phosphatase 108 C-Reactive Protein 2.31 H Total Protein 8.0 Albumin 4.3 Triglycerides 55 Cholesterol 126 LDL Cholesterol, Calc 81 HDL Cholesterol 34 TSH 1.44 Blood Type Antibody Screen 01/31/21 01/31/21 01/31/21 08:45 08:45 08:45 WBC RBC Hgb Hct MCV MCH MCHC RDW Plt Count MPV Immature Gran % (Auto) Neut % (Auto) Lymph % (Auto) [place] % (Auto) Eos % (Auto) Baso % (Auto) Lymph # (Auto) [place] # (Auto) Eos # (Auto) Baso # (Auto) Abs Immat Gran (auto) Absolute Neuts (auto) Absolute Nucleated RBC Nucleated RBC % (auto) PT INR APTT Sodium Potassium Chloride Carbon Dioxide Anion Gap BUN Creatinine Estim Creat Clear Calc Estimated GFR Random Glucose Estimat Average Glucose 105 Hemoglobin A1c % 5.3 Total Insulin 10.6 Calcium Total Bilirubin AST ALT Alkaline Phosphatase C-Reactive Protein Total Protein Albumin Triglycerides Cholesterol LDL Cholesterol, Calc HDL Cholesterol TSH Blood Type O Positive Antibody Screen NEGATIVE Narrative Narrative: EKG 11/2020 Vent. Rate : 064 BPM ? ? Atrial Rate : 064 BPM ?? P-R Int : 174 ms? QRS Dur : 096 ms ? ? QT Int : 412 ms ? ? ? P-R-T Axes : 046 032 021 degrees ?? QTc Int : 425 ms ? Normal sinus rhythm Incomplete right bundle branch block Borderline ECG When compared to the previous EKG of No significant changes seen ECHO Conclusions: - The left ventricular systolic function is normal.? The ? calculated ejection fraction is 64% by biplane method. ? - No obvious valvular pathology seen on this study.? ? ? Nuc Stress 02/15/21 Pending results Assessment and Plan Assessment Anesthesia Assessment: Chart Reviewed Documented by User: Fiorella Phillips MD 02/16/21 07:[facility] Past Medical History Medical History COVID-19 vaccine series completed GERD (gastroesophageal reflux disease) IBS (irritable bowel syndrome) Incomplete right bundle branch block (RBBB) JAMESON (obstructive sleep apnea) Functional capacity: independent ambulation Family History Family History Father Headache, migraine Mother HTN (hypertension) Paternal Grandmother Diabetes Paternal Aunt Cancer Family history of problems with anesthesia: No Surgical History Surgical History History of artificial eye lens Hx of colonoscopy Hx of endoscopy History of Problems with Anesthesia: No Social History Social History Household Members: Family Are you a primary rental boats caretaker to a significant other at home: No Do you presently have visiting nurse or other home services: No Alcohol intake: current Alcohol intake frequency: does not drink Patient Tobacco Use Status: Never used Tobacco Current occupational status: employed Current occupation: [email or web address] Allergies Allergy/AdvReac Type Severity Reaction Status Date / Time tree and shrub pollen Allergy Mild Itchy Eyes Verified 02/15/21 13:11 Assessment and Plan Final Anesthetic Review Family History of Problems with Anesthesia: No History of Problems with Anesthesia: No
--- NOTE | 2021-02-15 19:28 | MHC.SHP ---
Pre-Procedural Eval Section A Date of Service: 02/15/21 The patient is an INPATIENT: Yes The History & Physical has been completed within 30 days and I have reviewed it.: No Section B Chief Complaint: morbid obesity Relevant Family History (Specify if Yes): No Relevant Social History: None Present Medications: see Short Stay Collaborative assessment Medical History: No relevant PMH History of Previous Operations: No relevant previous surgery Allergies: Allergies Allergy/AdvReac Type Severity Reaction Status Date / Time tree and shrub pollen Allergy Mild Itchy Eyes Verified 02/15/21 13:11 Review of Systems Sugical H&P ROS: Negative: Constitution, Cardiovascular, Respiratory, Neurological, Psychiatric, Hem-Onc, Allergic/Immunologic, Gastrointestinal, Genitourinary, Musculoskeletal, Integumentary, Endocrine and Eyes/Ears/Nose/Throat Exam Surgical H&P Exam: Normal: HEENT, Normal: Heart, Normal: Lungs, Normal: Extremities, Normal: Abdomen, Normal: Skin and Normal: Neurological Plan Diagnosis/Plan: Unchanged I have reviewed the history and physical and performed a pertinent physical examination on my patient. No changes have occurred unless specified.
[2021-02-16] VITALS (19 sets, daily range): BP systolic 124–155; BP diastolic 56–83; PULSE 43–69; RESP 12–19; TEMP 36.1–36.9; O2SAT 93–100
[2021-02-16] MEDS: Lactated Ringers 1,000 ML 100 ML IVCONT (09:14)
[2021-02-16] MEDS: Lactated Ringers 1,000 ML 999 ML IV (09:14)
[2021-02-16 09:15] LABS: COVID-19 Test Negative (Negative)
--- NOTE | 2021-02-16 12:44 | P.BOP_ITS ---
Brief Operative Note Date of Service: 02/16/21 Pre-op diagnosis: Severe obesity and comorbidities (see below) Post-op diagnosis: same Procedure: INITIAL PATIENT BMI ON PRESENTATION AT OUR OFFICE: 42.9 kg/m2 LAST BMI BEFORE SURGERY: 38.2 kg/m2 COMORBIDITIES:GERD, IBS, liver steatosis, RBBB The patient participated in an intensive weekly lifestyle ?intervention and exercise program during which the patient ?has lost between the initial office visit and the last preoperative visit 31.4 lbs, or 11.8% of initial actual body weight. The patient met the BMI-criteria for bariatric surgery based on the BMI on initial presentation. The patient should not be penalized for achieving such weight loss because ?it is not sustainable long-term without surgical intervention and it was achieved in preparation for bariatric surgery ?under my direction and based on my published research ([email or web address] and? [email or web address]/[email or web address])[email or web address]/pdf ) ?that a 10% preoperative weight loss improves long-term weight loss after surgery and reduces perioperative complications.? Insurance carriers such as [facility] have endorsed my recommendations ?and have included in their policies criteria to include a 10% preoperative weight loss requirement. PROCEDURE: Esophago-gastroscopy, laparoscopic sleeve gastrectomy and laparoscopic gastropexy INDICATIONS: This is a 40 year-old male who was electively scheduled for laparoscopic, possibly open sleeve gastrectomy. The risks and complications of the procedure were discussed with the patient in advance, particularly the possibility of ; pulmonary embolism; staple line leak; bleeding; GERD; cardiac, pulmonary, or renal complications; as well as long-term problems such as insufficient weight loss, vitamin deficiency, strictures, or ulcers. The patient understood all the risks, and was in agreement to proceed with surgery. DESCRIPTION OF PROCEDURE: After informed consent was obtained from the patient, the patient was given preoperative antibiotics, and was transferred to the operating room. After successful induction of general anesthesia, pneumatic compressive devices were placed on both lower extremities. An upper endoscopy was performed next. The oropharynx and esophagus appeared to be within normal limits. There was no diaphragmatic hernia present consistent with the findings of the preoperative upper GI. The stomach was entered. Then after all fluid and air were suctioned and the stomach was fully decompressed, the scope was withdrawn and secured in the mid esophagus. The patient was then prepped and draped in the usual sterile manner, and abdominal access was established at the right upper quadrant with the Jackeline technique. A 12 mm blunt port was inserted, and the abdomen was insufflated with CO2 to a pressure of 15 mmHg. Under direct visualization, additional ports were placed, specifically two 5 mm Versi-step ports to the left upper quadrant, and a 5 mm Versi-Step port to the right upper quadrant. 1% lidocaine plain was used to infiltrate all port sites as well as all fascia defects. Following that, the patient was placed in a steep reverse Trendelenburg position. An additional 5 mm port was placed to the right flank for the Mediflex retractor that was used to retract the left lobe of the liver. The gastro-esophageal fat pad was opened with the ultrasonic device (Thund erbeat, Olympus) and the anterior esophagus and hiatus were exposed. The angle of His was opened with the ultrasonic device the fundus of the stomach from any diaphragmatic and splenic attachments. I then opened the gastrocolic ligament between the transverse colon and the greater curvature of the stomach with the ultrasonic device to enter the lesser sac and facilitate the ligation of the short gastric vessels. I started at a mid-point along the greater curvature and using the Thunderbeat, all short gastric vessels were divided all the way to the angle of His until the left zach was completely dissected at its entirety. I then divided the gastro-colic ligament distally to a distance of about 3-4 cm proximal to the esophagus. The stomach was then divided transversely with one Endo MARILYN-45 purple, one MARILYN- 45 orange, two MAIRLYN-60 orange and two MARILYN-60 articulating purple loads using the AEON stapler and loads. Every effort was made that the gastric sleeve had a tubular shape and an even caliber throughout. Once the sleeve resection was completed, the staple line of the gastric sleeve was reinforced with Hemoclips. The resected stomach was retrieved without difficulty from the Jackeline port. A gastropexy was then performed in order to prevent postoperative GERD and partial gastric volvulus. Several interrupted 2.0 Surgidac sutures were placed between the sleeve's staple line and the previously divided greater omentum and gastro-colic ligament using the Endo-Stitch device. ?An upper endoscopy was performed. There was no narrowing at the GE junction. The scope was easily advanced all the way to the pylorus which was clearly visualized. There was no narrowing anywhere and the sleeve's caliber was even throughout. The sleeve's staple line was inspected and there was no evidence of ischemia, bleeding or dehiscence. At that point the gastroscope was withdrawn from the patient?s mouth while we were decompressing the bowel and the stomach from any remaining air. I looked into the lesser sac to see how the sleeve was situating and it was situating well. There was no bleeding from the staple line, spleen, or short gastric vessels. The Mediflex retractor was removed, and the undersurface of the liver was inspected and there was no bleeding. The patient was placed in supine position. I closed the fascial defect of the 12 mm port site with a figure of eight #1 Polysorb suture. Then 100 cc 0.25 % Marcaine plain with 10 mg of Dexamethasone were used to infiltrate the fascial closure as well as all skin incisions. At this point, the abdomen was deflated, all ports were removed under direct vision, and no bleeding was noted from any of the port sites. The skin incisions were irrigated with saline and were closed with 4-0 absorbable monofilament sutures. Steri-Strips and OpSites were used to cover all incisions. The patient was extubated and was transferred in stable condition to the recovery room for further care. I was present and performed all arrington parts of the procedure. Arnie was the registered nurse first assistant. There were no residents to assist with this case. Loyd Arce MD, PhD, FACS Surgeon: Darius Arce MD Anesthesia: GETA, local and other (TAP block) Was an Senior Clinical Data Manager used for this Procedure?: Yes Senior Clinical Data Manager: Yun Gaitan Estimated blood loss (mL): 10 IV fluids (mL): 1,700 Urine output (mL): 0 (No Sandhu to record) Pathology: other (Stomach) Condition: stable Disposition: PACU
--- NOTE | 2021-02-16 12:50 | PM.PNGS ---
Subjective Subjective Date of Service: 02/17/21 Interval history: Patient has mild incisional pain, but was able to ambulate and use the incentive spirometer. She is tolerating phase 1 bariatric diet Physical Exam Vital Signs: Vital Signs: Last Vital Signs Temp 98.1 F 02/16/21 08:41 Pulse 68 02/16/21 08:41 Resp 16 02/16/21 08:41 BP 131/57 L 02/16/21 08:41 Pulse Ox 100 02/16/21 08:41 Body Mass Index 38.5 GI: Inspection: Yes normal to inspection and Yes incision (clean, dry and intact) Extrem: Right lower extremity: normal to inspection (no calf tenderness) Left lower extremity: normal to inspection (no calf tenderness) Procedures Date of Service Date of Service: 02/17/21 Progress Note: A&P Assessment and plan (1) S/P laparoscopic sleeve gastrectomy: Status: Acute Assessment and Plan: s/p laparoscopic sleeve gastrectomy and gastropexy Doing well Check am labs. If OK, will discharge home? (2) Obesity: Status: Acute (3) BMI 38.0-38.9,adult: Status: Acute (4) Irritable bowel syndrome with diarrhea: Status: Acute (5) GERD (gastroesophageal reflux disease): Status: Acute (6) Sleep apnea: Status: Acute (7) RBBB: Status: Acute (8) Steatosis, liver: Status: Acute Fall Risk Details Current Medications: Current Medications Generic Name Dose Route Start Last Admin Trade Name Freq PRN Reason Stop Dose Admin Lactated Ringer's 1,000 mls @ 100 mls/hr 02/16/21 08:30 02/16/21 09:14 Lr IVCONT 100 mls/hr .Q10H SAMI Administration Time Spent With Patient Time: Total time spent is greater than 50% in coordination of care (as documented) at patient's floor/unit and/or counseling patient: Time with patient: less than 15 minutes Quality Stroke Does the patient have a stroke diagnosis?: No VTE Prior VTE?: No VTE Risk Level:: Surgical - moderate VTE Device Contraindication: N/A - Device Ordered VTE Drug Contraindication: Treatment Not Indicated
--- NOTE | 2021-02-16 12:54 | P.DS_ITS ---
DS: Providers Provider Date of Service: 02/17/21 Primary care physician: Sarah Allen NP DS: Diagnosis Discharge Diagnosis (1) S/P laparoscopic sleeve gastrectomy: Status: Acute (2) Obesity: Status: Acute (3) BMI 38.0-38.9,adult: Status: Acute (4) Irritable bowel syndrome with diarrhea: Status: Acute (5) GERD (gastroesophageal reflux disease): Status: Acute (6) Sleep apnea: Status: Acute (7) RBBB: Status: Acute (8) Steatosis, liver: Status: Acute DS: Summary Hospital Course Hospital Course: ADMITTING DIAGNOSIS: morbid obesity, IBS, JAMESON, hx R BBB DISCHARGE DIAGNOSIS: same, s/p laparoscopic sleeve gastrectomy PAST SURGICAL HISTORY: none PROCEDURE: upper endoscopy, laparoscopic sleeve gastrectomy DISCHARGE SUMMARY: History of Present Illness: The patient is a 40year-old man with a BMI of 42.9 kg/m2 and associated co- morbidities as described above. The patient had extensive work-up,lost 26.4 lbs preoperatively and was electively scheduled for laparoscopic, possible open sleeve gastrectomy and gastropexy. Risks and complications of the surgery were discussed with the patient in advance, particularly the possibility of , pulmonary embolism, anastomotic leak, bleeding, bowel injury, GERD, cardiac, renal or pulmonary complications. The patient understood all the risks and was in agreement with the surgical plan. Hospital Course: The patient underwent an uneventful laparoscopic sleeve gastrectomy with gastropexy on the day of admission. Postoperatively, the patient was transferred to the surgical floor. The patient received IV Acetaminophen and IV dilaudid for pain control. Patient was started on bariatric phase 1 diet POD #0. On postoperative day one, the patient was feeling well without nausea, vomiting, fevers, or tachycardia. The patient had some mild incisional pain and the abdomen was soft. On the morning of postoperative day one, the patient was continued on 1 ounce of water or ice every half hour. During the day, the patient did fairly well, having some incisional pain, but able to ambulate adequately and to tolerate liquids well. Since the patient is doing well, we decided that the patient was ready to be discharged. The patient was given instructions to follow-up with me next week and to call my office for any fever over 101, persistent abdominal pain, nausea, vomiting, GERD, symptoms of DVT such as calf tenderness, or leg swelling, or pulmonary embolism such as chest pain or shortness of breath. The patient was also instructed to drink 40-60 ounces of liquids per day using the 1-ounce cups. The patient had been given prescriptions for Tylenol for pain, Zofran prn for nausea, and pantoprazole and carafate previously. The patient was encouraged to ambulate and use the incentive spirometer. The patient was allowed to shower, but no baths, and encouraged to stay active at home. All of these instructions were given to the patient personally. All questions were answered and the patient understood all instructions, the instructions were also given to the patient in print. Time Spent with Patient Time attestation: Total time spent providing and/or coordinating discharge services: Discharge coordination time: Less than 30 minutes Quality: Stroke Does the patient have a stroke diagnosis?: No Physical Exam Vital Signs: Vital Signs: Last Vital Signs Temp 97.0 F 02/16/21 12:51 Pulse 67 02/16/21 12:51 Resp 14 02/16/21 12:51 BP 144/78 H 02/16/21 12:51 Pulse Ox 100 02/16/21 12:51 Body Mass Index 38.5 DS: Data Data Completed and Pending Pending studies at discharge: Pending at discharge 02/16/21 11:44 Surgical [PTH] Routine Labs on day of discharge: Laboratory Results - last 24 hr 02/16/21 02/16/21 08:30 08:51 COVID-19 (DEB) Negative COVID-19 Clin Com See Note Blood Type O Positive Antibody Screen NEGATIVE Discharge Plan Discharge Anticipated Discharge Date/Time: 02/17/21 10:51 Patient Disposition: Home, Self-Care Discharge Diagnosis: s/p sleeve gastrectomy Referrals: Sarah Allen NP [Primary Care Provider] - 1 Week Discharge Medications: Continued ondansetron 4 mg tablet,disintegrating 4 mg PO Q8H PRN (Reason: nausea and vomiting) Qty: 7 RF: 0 hydrocortisone [Anusol-HC] 2.5 % cream with perineal applicator 1 appl VT BID PRN (Reason: hemorrhoids) Qty: 30 RF: 0 pantoprazole 40 mg tablet,delayed release (DR/EC) 40 mg PO BID 30 Days Qty: 60 RF: 3 sucralfate 100 mg/mL suspension 10 ml PO BID Qty: 400 RF: 2 Discontinued cholecalciferol (vitamin D3) 125 mcg (5,000 unit) capsule 125 mcg PO DAILY Qty: 30 RF: 2 mecobalamin (vitamin B12) 1,000 mcg tablet,disintegrating 1,000 mcg sublingual DAILY Qty: 30 RF: 2 vitamin A palmitate 10,000 unit capsule 10,000 unit PO .COMPLEX Qty: 30 RF: 2 pantoprazole 40 mg tablet,delayed release (DR/EC) 40 mg PO DAILY Qty: 30 RF: 2 ondansetron HCl [Zofran] 4 mg tablet 4 mg PO Q12H Qty: 20 RF: 0 polyethylene glycol 3350 [Miralax] 17 gram powder in packet 17 g PO DAILY Qty: 14 RF: 0 Diet: other Activity on Discharge: No heavy lifting Stand Alone Forms: Patient Portal Discharge page Care Plan Goals: weight loss Health Concerns: morbid obesity Plan of Treatment: No tub baths, sex or returning to work until discussed at first post op appointment. No exercise, alcohol, tobacco or illegal drug use. Continue to use incentive spirometer hourly while awake. Walk in home for 5- 10 minutes every 2 hours during the first week. Continue phase 1 diet today and start phase 2 diet tomorrow morning. Follow all instructions in the bariatric handbook and call with any questions. The patient's medical history has been reviewed and they are considered low risk for post op DVT and therefore DVT prophylaxis is not considered necessary. Travel after surgery was reviewed. The patient has not disclosed any travel plans during the first 30 days after surgery and they have been advised that within the first 30 days after surgery any bus, plane, train or car travel over 2 hours in duration is contraindicated due to the possibility of developing blood clots from immobility. Any travel, needs to include periods of ambulation of 10 minutes in duration every 2 hours. The patient was instructed to discuss any plans for travel during this period with their bariatric surgeon. Assessment: stable post op sleeve gastrectomy
[2021-02-16] MEDS: Lactated Ringers 1,000 ML 125 ML IVCONT ×2 (13:16→22:44)
[2021-02-16] MEDS: Famotidine/PF 20 MG/2 ML VIAL IVPUSH ×2 (13:16→22:45)
[2021-02-16] MEDS: ondansetron HCL 4 MG/2 ML VIAL IVPUSH (16:12)
[2021-02-16] MEDS: ceFAZolin Sodium/Dextrose,Iso 2 GM/50 ML PIGGYBACK IV (16:59)
[2021-02-16 17:08] LABS: Hematocrit 41.8 % (42-52); Hemoglobin 13.4 g/dl (14.0-18.0)
[2021-02-16 17:38] LABS: Anion Gap 17 (12-20); Blood Urea Nitrogen 13 mg/dL (9-16); Calcium 8.4 mg/dL (8.4-10.2); Carbon Dioxide 16 mmol/L (22-29); Chloride 107 mmol/L (96-108); Creatinine Clr Calc Pharmacy 170.9; Estimated Glomerular Filt Rate > 60; Glucose Random 125 mg/dL (60-115); Potassium 4.4 mmol/L (3.3-5.1); Sodium 136 mmol/L (135-145)
[2021-02-17] VITALS: BP 119/63; PULSE 42; RESP 13; TEMP 36.6; O2SAT 97
[2021-02-17] MEDS: ondansetron HCL 4 MG/2 ML VIAL IVPUSH ×3 (00:42→17:10)
[2021-02-17 04:00] VITALS: BP 144/69; PULSE 46; RESP 13; TEMP 36.4; O2SAT 97
[2021-02-17] MEDS: Lactated Ringers 1,000 ML 125 ML IVCONT ×2 (04:52→12:58)
[2021-02-17 06:09] LABS: MANUAL DIFF FLAG NO
[2021-02-17 06:14] LABS: Hematocrit 39.9 % (42-52); Hemoglobin 12.7 g/dl (14.0-18.0); Imm Gran Abs Auto 0.02 X10*3/uL (0.00-0.03); Imm Gran Pct Auto 0.3 % (0.0-0.4); Lymphocytes Absolute Auto 1.4 X10*3/uL (1.2-4.9); Lymphocytes Percent Auto 18.7 % (20-40); Mean Corpuscular HGB Conc 31.8 g/dl (31.0-36.0); Mean Corpuscular Hemoglobin 26.4 pg (27.0-33.0); Mean Platelet Volume 11.7 fL (9.4-12.4); Monocytes Absolute Auto 0.5 X10*3/uL (0.1-1.2); Monocytes Percent Auto 6.6 % (2-11); Neutrophils Absolute Auto 5.6 X10*3/uL (2.0-8.3); Neutrophils Percent Auto 74.4 % (45-73); Platelet Count 215 X10*3/uL (160-400); Red Blood Count 4.81 X10*6/uL (4.60-5.80); Red Cell Distribution Width 12.5 % (11.0-16.0); White Blood Count 7.5 X10*3/uL (4.8-10.8)
[2021-02-17 06:39] LABS: Anion Gap 17 (12-20); Blood Urea Nitrogen 8 mg/dL (9-16); Calcium 8.8 mg/dL (8.4-10.2); Carbon Dioxide 20 mmol/L (22-29); Chloride 106 mmol/L (96-108); Creatinine Clr Calc Pharmacy 165.9; Estimated Glomerular Filt Rate > 60; Glucose Random 105 mg/dL (60-115); Potassium 4.7 mmol/L (3.3-5.1); Sodium 138 mmol/L (135-145)
--- NOTE | 2021-02-17 06:53 | HO.POSTANES ---
Post Anesthesia Evaluation Post Anesthesia Evaluation Vital Signs: Vital Signs Temp Pulse Resp BP Pulse Ox 02/17/21 04:00 97.6 F 46 L 13 144/69 H 97 02/17/21 00:00 97.8 F 42 L 13 119/63 97 02/16/21 20:00 98.5 F 43 L 12 144/69 H 98 Anesthesia: General Endotracheal-GETA Mental Status: Awake Pain Control: Satisfactory Nausea/Vomiting: None Hydration: Adequate Anesthesia-Related Issues: No Anes. Related Issues
[2021-02-17] MEDS: Famotidine/PF 20 MG/2 ML VIAL IVPUSH (07:32)
[2021-02-17 07:36] VITALS: BP 141/66; PULSE 45; RESP 15; TEMP 37.1; O2SAT 97
--- NOTE | 2021-02-17 09:08 | MHC.CM.PN ---
EMR REVIEWED, PT ADMITTED W/LAP GASTRIC SLEEVE, CM MET W/PT WHO REPORTS HE LIVES W/ AND 19YO SON, PT WORKS FOR [employer], IS INDEPENDENT WITH ALL, NO DME AND NO HOME SERVICES, PT VERIFIES PCP ANDI TOURE AND PT PROVIDED W/HCP EDUCATION IS DECLINING TO COMPLETE W/CM. D/C PLAN: HOME TODAY SELF-CARE, PT WILL CALL FAMILY FOR TRANSPORT.
[2021-02-17 12:00] VITALS: BP 123/58; PULSE 49; RESP 15; TEMP 36.6; O2SAT 98
[2021-02-17 15:59] VITALS: BP 140/57; PULSE 47; RESP 18; TEMP 37; O2SAT 100
== END 2021-02-17 18:37 | disposition home or self-care (01) | DRG 403 ==
LOC: HO.SSSA 13:00 → HO.S3 15:47
PROVIDERS: Physician Assistant; Admitting Provider Surgery; PCP Hospitalist; Visit Provider Surgery
PROC: 0DB64Z3 Excision of Stomach, Percutaneous Endoscopic Approach, Vertical (ICD-10-PCS; CPT 43845; principal; 2021-02-16 10:10)
DX: E66.01 Morbid (severe) obesity due to excess calories (principal); K76.0 Fatty (change of) liver, not elsewhere classified; I45.10 Unspecified right bundle-branch block; K58.0 Irritable bowel syndrome with diarrhea; G47.33 Obstructive sleep apnea (adult) (pediatric); Z68.38 Body mass index [BMI] 38.0-38.9, adult; K21.9 Gastro-esophageal reflux disease without esophagitis; Z20.822 Contact with and (suspected) exposure to COVID-19; Z79.899 Other long term (current) drug therapy
CPT/HCPCS: 36415; 80048; 80053; 80061; 83036; 83525; 84443; 85014; 85018; 85025; 85610; 85730; 86140; 86850; 86900; 86901; 87635; 88307; 88342; 99024; A4649; J0131; J0690; J1100; J1170; J2250; J2405; J3010

== ENCOUNTER → 2021-02-21 13:41 | Outpatient (BNVA) | payer BC, OTHER, SELFPAY | PROVIDERS: Visit Provider Nurse Practitioner ==

== ENCOUNTER → 2021-02-24 08:26 | Outpatient (BNVA) | payer BC, OTHER, SELFPAY | PROVIDERS: PCP Hospitalist; Visit Provider Surgery ==

== ENCOUNTER → 2021-03-27 08:06 | Outpatient (BNVA) | payer BC, OTHER, SELFPAY | PROVIDERS: PCP Hospitalist; Visit Provider Surgery ==

== ENCOUNTER → 2021-04-26 07:54 | Outpatient (BNVA) | payer BC, OTHER, SELFPAY | PROVIDERS: PCP Hospitalist; Visit Provider Surgery ==

== ENCOUNTER → 2021-05-29 07:39 | Outpatient (BNVA) | payer BC, OTHER, SELFPAY | PROVIDERS: PCP Hospitalist; Visit Provider Surgery ==

== ENCOUNTER 2021-06-06 09:48 | Outpatient (REF) | payer BC, OTHER, SELFPAY ==
[2021-06-06 12:46] LABS: Binax Internal Control QC Valid; Binax Lot number: 9864; Binax Now Covid-19 Ag Negative (Negative)
== END 2021-06-06 09:49 | disposition home or self-care (01) ==
LOC: HO.LAB 09:48
PROVIDERS: Visit Provider Internal Medicine
DX: Z20.822 Contact with and (suspected) exposure to COVID-19 (principal)
CPT/HCPCS: 36415

== ENCOUNTER → 2021-06-19 07:59 | Outpatient (BNVA) | payer BC, MEDICAID, SELFPAY | PROVIDERS: PCP Hospitalist; Visit Provider Dietitian, Registered | DX: E66.9 Obesity, unspecified (principal); Z68.30 Body mass index [BMI] 30.0-30.9, adult | CPT/HCPCS: 97803 ==

== ENCOUNTER → 2021-07-20 08:07 | Outpatient (BNVA) | payer BC, MEDICAID, SELFPAY | PROVIDERS: PCP Hospitalist; Referring Provider Surgery; Visit Provider Dietitian, Registered | DX: E66.9 Obesity, unspecified (principal); Z68.30 Body mass index [BMI] 30.0-30.9, adult | CPT/HCPCS: 97803 ==

== ENCOUNTER 2021-08-14 09:40 | Outpatient (REF) | payer BC, MEDICAID, SELFPAY ==
[2021-08-14 11:53] LABS: Hematocrit 48.5 % (42.0-52.0); Hemoglobin 15.4 g/dl (14.0-18.0); Mean Corpuscular HGB Conc 31.8 g/dl (31.0-36.0); Mean Corpuscular Volume 85.1 fL (80.0-98.0); Mean Platelet Volume 10.8 fL (9.4-12.4); Platelet Count 253 X10*3/uL (160-400); Red Cell Distribution Width 12.7 % (11.0-16.0)
[2021-08-14 12:14] LABS: Alanine Aminotransferase 15 U/L (0-40); Albumin Level 4.3 g/dL (3.5-5.0); Alkaline Phosphatase 97 U/L (39-117); Anion Gap 10 (12-20); Aspartate Amino Transferase 14 U/L (5-37); Bilirubin Total 0.8 mg/dL (0.0-1.0); Blood Urea Nitrogen 13 mg/dL (9-16); Calcium 9.9 mg/dL (8.4-10.2); Carbon Dioxide 32 mmol/L (22-29); Chloride 103 mmol/L (96-108); Cholesterol 151 mg/dL; Estimated Glomerular Filt Rate > 60; Glucose Fasting 93 mg/dL (60-99); HDL Cholesterol 51 mg/dL; LDL Cholesterol Calculated 89 mg/dl; Magnesium 2.3 mg/dL (1.6-2.6); Phosphorus 2.7 mg/dL (2.7-4.5); Potassium 4.7 mmol/L (3.3-5.1); Sodium 140 mmol/L (135-145); Total Protein 7.9 g/dL (6.5-8.0); Triglycerides 58 mg/dL
[2021-08-14 12:40] LABS: TSH reflex Free T4 1.18 uIU/mL (0.32-4.0)
== END 2021-08-14 09:41 | disposition home or self-care (01) ==
LOC: HO.WFDLDS 09:40
PROVIDERS: Visit Provider Hospitalist
DX: Z00.00 Encounter for general adult medical examination without abnormal findings (principal); K21.9 Gastro-esophageal reflux disease without esophagitis
CPT/HCPCS: 36415; 80053; 80061; 83735; 84100; 84443; 85027

== ENCOUNTER → 2021-08-18 10:15 | Outpatient (BNVA) | payer BC, MEDICAID, SELFPAY | PROVIDERS: PCP Hospitalist; Referring Provider Surgery; Visit Provider Physician Assistant Surgical | DX: E66.3 Overweight (principal); Z68.29 Body mass index [BMI] 29.0-29.9, adult | CPT/HCPCS: 99212 ==

== ENCOUNTER → 2021-09-04 08:08 | Outpatient (BNVA) | payer BC, MEDICAID, SELFPAY | PROVIDERS: PCP Hospitalist; Referring Provider Surgery; Visit Provider Dietitian, Registered | DX: E66.3 Overweight (principal); Z68.29 Body mass index [BMI] 29.0-29.9, adult | CPT/HCPCS: 97803 ==

== ENCOUNTER 2022-08-11 13:08 | Emergency (ER) | payer BC, MEDICAID, SELFPAY ==
--- NOTE | ~2022-08-11 | XR_ITS ---
EXAMINATION: XR RIBS, RIGHT CLINICAL INFORMATION: Lifting an engine and felt pop. COMPARISON: Wrist radiograph 11/11/2020 TECHNIQUE: Single view of the chest with 3 additional views right RIBS. FINDINGS: Lungs are clear. No consolidation, pneumothorax, or pleural effusion. The cardiomediastinal silhouette and pulmonary vasculature are normal. Surgical clips are present at the GE junction. Osseous structures are unremarkable. Ribs are intact. No fractures are identified. XR/XR ribs RT min 3V w CXR1V IMPRESSION: Unremarkable examination.
[2022-08-11 13:20] VITALS: BP 128/55; PULSE 62; RESP 16; TEMP 36; O2SAT 98; BMI 35.2
--- NOTE | 2022-08-11 13:21 | ED.GENADULT ---
HPI - General Adult General Chief complaint: General Medical Stated complaint: R side pain/Pain when breathing Time Seen by Provider: 08/11/22 15:37 Source: patient Mode of arrival: ambulatory Limitations: no limitations History of Present Illness HPI narrative: Patient is a 41 year old assigned male at with no reported medical history presenting to the emergency department today with right sided rib pain. Patient states that he attempted to lift a car engine and felt a pop in his right ribs. Patient denies any dizziness, lightheadedness, abdominal pain, nausea, vomiting, fever, chills, blurry vision, double vision, loss of vision, chest pain, difficulty breathing, shortness of breath, back pain, night sweats, pain with urination, increased urinary frequency, increased urinary urgency, blood in his urine or stool, syncope or a near syncopal episode, bowel incontinence, bladder incontinence, bowel retention, bladder retention, or any other complaints at this time. Onset (ago): day(s) (4) Location: chest Radiation: non-radiation Severity: mild Severity scale (1-10): 2 Quality: aching Pain Consistency: constant Relieving factors: none Exacerbating factors: none Associated symptoms: denies other symptoms Treatments prior to arrival: none Related Data Home Medications Medication Instructions Recorded Confirmed Celebrate Saran+D PO BID 08/18/21 08/18/21 Celebrate MVI PO DAILY 08/18/21 08/18/21 Previous Rx's Medication Instructions Recorded cyclobenzaprine 5 mg tablet 5 mg PO TID PRN rib pain 7 days 08/11/22 #21 tabs naproxen 500 mg tablet 500 mg PO BID 7 days #14 tabs 08/11/22 Allergies Allergy/AdvReac Type Severity Reaction Status Date / Time tree and shrub pollen Allergy Mild Itchy Eyes Verified 08/11/22 13:20 Review of Systems Constitutional: Constitutional: Reports no additional constitutional complaints, Denies chills, Denies fever(s) and Denies night sweats Eyes: Eyes: Reports no additional eye complaints, Denies blurry vision, Denies change in vision, Denies diplopia, Denies eye discharge, Denies loss of vision and Denies eye pain ENT: Denies dizziness Cardiovascular: Cardiovascular: Reports no additional cardiovascular complaints, Denies chest pain, Denies lightheadedness, Denies Loss of Consciousness and Denies dyspnea Respiratory: Respiratory: Reports no additional respiratory complaints and Denies dyspnea Gastrointestinal: Gastrointestinal: Reports no additional gastrointestinal complaints, Denies abdominal pain, Denies melena, Denies hematochezia, Denies change in bowel habits and Denies change in stool character Genitourinary: Genitourinary: Reports no additional male genitourinary complaints, Denies hematuria, Denies oliguria, Denies difficulty urinating, Denies dysuria, Denies urinary frequency, Denies urinary hesitancy, Denies urinary incontinence and Denies urinary urgency Musculoskeletal: Musculoskeletal: Reports no additional musculoskeletal complaints, Denies numbness and Denies tingling Comments: right sided rib pain Neurologic: Denies dizziness, Denies loss of vision, Denies numbness and Denies tingling Psychiatric: Psychiatric: Reports no additional psychiatric complaints Endocrine: Endocrine: Reports no additional endocrine complaints Hematologic/Lymphatic: Hematologic/Lymphatic: Reports no additional hematologic/lymphatic complaints Allergic/Immunologic: Allergic/Immunologic: Reports no additional allergic/immunologic complaints [facility] Past Medical History Attestation statement: The following information was validated with the patient. Source: old records reviewed and nursing notes reviewed Medical History Abnormal EKG BMI 38.0-38.9,adult COVID-19 vaccine series completed Epigastric pain Erosive esophagitis GERD (gastroesophageal reflux disease) IBS (irritable bowel syndrome) Incomplete right bundle branch block (RBBB) LLQ pain Nausea Obesity JAMESON (obstructive sleep apnea) Preop cardiovascular exam RBBB Snoring Steatosis, liver Vitamin A deficiency Vitamin B12 deficiency Vitamin D deficiency Well adult exam Surgical History History of artificial eye lens History of sleeve gastrectomy History of weight loss surgery Hx of colonoscopy Hx of endoscopy Family History Family History Father Headache, migraine Mother HTN (hypertension) Paternal Grandmother Diabetes Paternal Aunt Cancer Social History Social History Household Members: Family Housing: House Are you a primary primary care coordinator to a significant other at home: No Do you presently have visiting nurse or other home services: No Alcohol intake: current Alcohol intake frequency: does not drink Patient Tobacco Use Status: Never used Tobacco e-Cigarette/Vaping Use: Never Used Second Hand Smoke Exposure: No Advance Directives: No Advance Directives Information Provided: No service: No Current occupational status: employed Current occupation: [employer] Physical Exam ED Vital Signs: Vital Signs - 24 hr 08/11/22 13:20 Temperature 96.8 F Pulse Rate 62 Respiratory Rate 16 Blood Pressure 128/55 L Pulse Oximetry 98 Oxygen Delivery Method Room Air BMI result Body Mass Index 35.2 Const General: cooperative, no acute distress, alert and awake Nutritional Appearance: well nourished Orientation/consciousness: patient oriented x3 Limitations: no limitations HENMT Head: Yes normal to inspection and Yes atraumatic Ears: hearing grossly normal bilaterally and external ears normal General nose exam: Normal external nose present, no nasal discharge noted and no epistaxis Face and sinus: Yes normal facial exam, No abrasion and No laceration Mouth: Normal oral and palatal mucosa present, no drooling and no muffled voice Eyes General: appearance normal, both eyes and all related structures Periorbital: periorbital findings normal Eyelids: Yes eyelids normal Conjunctivae: conjunctivae normal Pupils: Equal, round and reactive pupils present EOM: EOMs intact bilaterally Neck Neck: Yes normal visual inspection, Yes full ROM and Yes no lymphadenopathy Chest Chest palpation & inspection: normal inspection of the chest Resp Effort & Inspection: normal respiratory effort and able to speak in complete sentences Auscultation: clear to auscultation bilaterally Cardio Rate: regular rate Rhythm: regular rhythm GI Inspection: Yes normal to inspection Palpation (GI): Soft to palpation, not firm, nontender, no guarding and not rigid Neuro General: patient oriented x3 and moves all extremities Cranial nerves: Yes Equal, round and reactive pupils present Cognition (Neuro): normal cognition Motor exam (neuro): 5/5 motor strength present throughout Sensory Exam: Normal double simultaneous stimulation for sensation Coordination: [id number] test normal Extrem General: Yes normal to inspection, Yes full ROM and Yes capillary refill normal Psych Appearance: grossly normal Mental Status: mental status grossly normal Affect: normal affect Attitude: cooperative Thought process: Normal thought process present Thought content: Normal thought content present Insight: Good insight present (Psych) Course Course Course Narrative: RME performed by Danika Kraft PA-C. Patient is a 41 year old male presenting to the emergency department with right sided rib pain. Patient states that he attempted to move an engine out of a car himself and felt something pop on his right side and now he is having pain. CXR ordered. Patient placed back in the waiting room pending results and room availability. Medical Decision Making Medical Decision Making MDM Narrative: Patient is a 41 year old assigned male at with no reported medical history presenting to the emergency department today with right sided rib pain. Patient's physical exam was unremarkable. Patient's right rib x-ray showed no acute process. I explained my physical exam findings as well as all test results to the patient. I answered all questions asked by the patient. Patient received IM Toradol and PO Flexeril which he stated helped his symptoms significantly. I stressed the importance of the patient taking his medication as prescribed. I stressed the importance of the patient following up with his primary care provider. I stressed the importance of the patient returning to the emergency department immediately if his symptoms were to worsen or if he were to develop any dizziness, shortness of breath, difficulty breathing, chest pain, blurry vision, loss of vision, nausea, vomiting, abdominal pain, fever, chills, back pain, or any other complaints. Patient verbalized agreement and understanding with this treatment plan and discharge. Differential Diagnosis Differential Diagnoses: The differential diagnosis associated with the presentation includes right rib pain, costochondritis Independent Interpretation I performed an independent interpretation of an: Plain X-Ray Interpretation: My interpretation is in agreement with the radiologist's impression of this imaging study. EXAMINATION: XR RIBS, RIGHT CLINICAL INFORMATION: Lifting an engine and felt pop. COMPARISON: Wrist radiograph 11/11/2020 TECHNIQUE: Single view of the chest with 3 additional views right RIBS. FINDINGS: Lungs are clear. No consolidation, pneumothorax, or pleural effusion. The cardiomediastinal silhouette and pulmonary vasculature are normal. Surgical clips are present at the GE junction. Osseous structures are unremarkable. Ribs are intact. No fractures are identified. XR/XR ribs RT min 3V w CXR1V IMPRESSION: Unremarkable examination. Dictated By: Brant Desai MD Signed By: Electronically signed by Brant Desai MD 08/11/22 5164 Discharge Plan Discharge Clinical Impression: Rib pain Patient Disposition: Home, Self-Care Instructions: Costochondritis (ED) Additional Instructions: Follow up with your primary care provider. Return to the emergency department immediately if your symptoms worsen or if you develop any dizziness, shortness of breath, difficulty breathing, chest pain, blurry vision, loss of vision, nausea, vomiting, abdominal pain, fever, chills, back pain, or any other complaints. Prescriptions: New naproxen 500 mg tablet 500 mg PO BID 7 Days Qty: 14 0RF cyclobenzaprine 5 mg tablet 5 mg PO TID PRN (Reason: rib pain) 7 Days Qty: 21 0RF No Action Celebrate MVI PO DAILY Celebrate Saran+D PO BID Referrals: Sarah Allen NP [Primary Care Provider] - Stand Alone Forms: Work/School Release Print Language: Welsh
[2022-08-11] MEDS: Ketorolac Tromethamine 15 MG/ML VIAL IM (15:43)
[2022-08-11] MEDS: Cyclobenzaprine HCl 5 MG TABLET PO (15:44)
--- NOTE | 2022-08-11 15:44 | PC.NURSE ---
pt medicated per provider order.
== END 2022-08-11 15:51 | disposition home or self-care (01) ==
LOC: HO.ED 15:45
PROVIDERS: Emergency Provider Emergency Medicine; PCP Hospitalist
DX: R07.81 Pleurodynia (principal)
CPT/HCPCS: 71101; 96372; 99283; 99284; J1885

== ENCOUNTER 2022-08-23 11:20 | Outpatient (REF) | payer BC, MEDICAID, SELFPAY ==
[2022-08-23 14:06] LABS: Hematocrit 46.6 % (42.0-52.0); Hemoglobin 14.7 g/dl (14.0-18.0); Mean Corpuscular HGB Conc 31.5 g/dl (31.0-36.0); Mean Corpuscular Hemoglobin 26.9 pg (27.0-33.0); Mean Corpuscular Volume 85.3 fL (80.0-98.0); Mean Platelet Volume 10.8 fL (9.4-12.4); Platelet Count 255 X10*3/uL (160-400); Red Blood Count 5.46 X10*6/uL (4.60-5.80); Red Cell Distribution Width 12.2 % (11.0-16.0); White Blood Count 5.6 X10*3/uL (4.8-10.8)
[2022-08-23 14:51] LABS: Alanine Aminotransferase 16 U/L (0-40); Albumin Level 4.4 g/dL (3.5-5.0); Alkaline Phosphatase 103 U/L (39-117); Anion Gap 10 (12-20); Aspartate Amino Transferase 14 U/L (5-37); Bilirubin Total 0.9 mg/dL (0.0-1.0); Blood Urea Nitrogen 18 mg/dL (9-16); Calcium 9.5 mg/dL (8.4-10.2); Carbon Dioxide 31 mmol/L (22-29); Chloride 106 mmol/L (96-108); Cholesterol 156 mg/dL; Estimated Glomerular Filt Rate > 60; Glucose Fasting 87 mg/dL (60-99); HDL Cholesterol 47 mg/dL; LDL Cholesterol Calculated 98 mg/dl; Potassium 4.6 mmol/L (3.3-5.1); Sodium 142 mmol/L (135-145); TSH reflex Free T4 1.61 uIU/mL (0.32-4.0); Total Protein 7.8 g/dL (6.5-8.0); Triglycerides 56 mg/dL
== END 2022-08-23 11:21 | disposition home or self-care (01) ==
LOC: HO.WFDLDS 11:20
PROVIDERS: Visit Provider Hospitalist
DX: Z00.00 Encounter for general adult medical examination without abnormal findings (principal); E66.9 Obesity, unspecified; D64.9 Anemia, unspecified; Z98.84 Bariatric surgery status
CPT/HCPCS: 36415; 80053; 80061; 84443; 85027

== ENCOUNTER 2023-03-14 09:39 | Emergency (ER) | payer BC, MEDICAID, SELFPAY ==
--- NOTE | ~2023-03-14 | US_ITS ---
EXAMINATION: US SCROTUM CLINICAL INFORMATION: Right testicular pain. COMPARISON: CT abdomen/pelvis 12/06/2020. TECHNIQUE: A sonogram of the scrotum was performed assessing dalton-scale appearance and color Doppler flow. Spectral Doppler analysis of the arterial and venous flow were performed in the testes bilaterally. FINDINGS: RIGHT: Right testicle measures 2.4 x 3 x 2.3 cm, volume 9 mL. No focal testicular parenchymal lesions are visualized. Spectral Doppler analysis of the arterial and venous flow is increased in the right testis. Right epididymal head is normal in size. Small hydrocele with internal debris. No varicocele. Right epididymal Doppler flow is increased. LEFT: Left testicle measures 2.6 x 2 x 2.3 cm, volume 6 mL. No focal testicular parenchymal lesions are visualized. Spectral Doppler analysis of the arterial and venous flow is increased in the left testis. Left epididymal head is normal in size. Small hydrocele with internal debris. No varicocele. Left epididymal Doppler flow is increased. US/US scrotum IMPRESSION: Nonspecific increased vascularity in the bilateral testis and bilateral epididymis; recommend clinical correlation for an infectious/inflammatory process, and a short-term follow-up ultrasound for reevaluation. Minimally complicated small bilateral hydroceles with floating debris, that could be seen with superimposed infection.
--- NOTE | ~2023-03-14 | CT_ITS ---
EXAMINATION: CT ABDOMEN AND PELVIS WITH CONTRAST CLINICAL INFORMATION: Right lower abdominal pain. COMPARISON: CT abdomen/pelvis 12/06/2020. TECHNIQUE: Multidetector volumetric images were obtained from the superior aspect of the liver through the pubic symphysis following administration 85 mL of Omnipaque 350 intravenous contrast. Sagittal and coronal reformatted images were obtained on the technologist's workstation. Oral contrast: No This CT examination was performed using dose optimization techniques as appropriate, variously including the following: *Automated exposure control *Adjustment of mA and/or kV according to patient size (this includes techniques or standardized protocols for targeted exams where dose is matched to indication/reason for exam; i.e. extremities or head) *Use of iterative reconstruction technique DLP: 769 mGy-cm FINDINGS: LUNG BASES: The visualized lung bases are unremarkable. LIVER, GALLBLADDER, AND BILIARY TREE: The liver is normal in size, shape, and attenuation. Single too small to characterize hypodensity in the medial left hepatic lobe (3:19), statistically favoring to represent a simple cyst or fat locule. Regional fatty infiltration adjacent to the fissure of the falciform ligament (3:23). No biliary ductal dilatation is present. The gallbladder is unremarkable with no evidence of radiopaque gallstones, gallbladder wall thickening, or obvious pericholecystic inflammatory changes. PANCREAS: Unremarkable. SPLEEN: Unremarkable. ADRENAL GLANDS: Unremarkable. KIDNEYS AND URETERS: The kidneys are normal in size, shape, and attenuation. No hydronephrosis, hydroureter, or calculi seen. No perinephric stranding. BLADDER: Unremarkable. GASTROINTESTINAL TRACT: Postsurgical changes from gastric sleeve procedure. The stomach and the small bowel are nondilated. Appendix is not visualized, however there are no regional inflammatory changes to suspect acute appendicitis. Mild colonic diverticulosis without significant pericolonic fat stranding or free fluid. No evidence of bowel obstruction. ABDOMINAL WALL: No significant hernia is appreciated. LYMPH NODES: Prominent periportal lymph nodes are stable compared to 06/01/2020. Scattered prominent nonspecific mesenteric lymph nodes measuring up to 8 mm in short axis with mild mesenteric vasculature engorgement, slightly increased compared to 2019. VASCULAR: Normal caliber abdominal aorta. Main portal vein is patent. PELVIC VISCERA: Unremarkable. OSSEOUS STRUCTURES: No acute or aggressive appearing osseous abnormalities. CT/CT abdomen pelvis w IV con IMPRESSION: 1. Mild colonic diverticulosis but no evidence of acute diverticulitis. 2. Nonspecific prominent mesenteric lymph nodes with mild engorgement of the mesenteric vasculature, slightly increased compared to 2020. This could be seen in the setting of mesenteric adenitis/panniculitis or potentially gastroenteritis in the appropriate clinical context. 3. Postsurgical changes from gastric sleeve procedure. No evidence of bowel obstruction.
--- NOTE | ~2023-03-14 | US_ITS ---
EXAMINATION: US SCROTUM CLINICAL INFORMATION: Right testicular pain. COMPARISON: CT abdomen/pelvis 12/06/2020. TECHNIQUE: A sonogram of the scrotum was performed assessing dalton-scale appearance and color Doppler flow. Spectral Doppler analysis of the arterial and venous flow were performed in the testes bilaterally. FINDINGS: RIGHT: Right testicle measures 2.4 x 3 x 2.3 cm, volume 9 mL. No focal testicular parenchymal lesions are visualized. Spectral Doppler analysis of the arterial and venous flow is increased in the right testis. Right epididymal head is normal in size. Small hydrocele with internal debris. No varicocele. Right epididymal Doppler flow is increased. LEFT: Left testicle measures 2.6 x 2 x 2.3 cm, volume 6 mL. No focal testicular parenchymal lesions are visualized. Spectral Doppler analysis of the arterial and venous flow is increased in the left testis. Left epididymal head is normal in size. Small hydrocele with internal debris. No varicocele. Left epididymal Doppler flow is increased. US/US scrotum doppler IMPRESSION: Nonspecific increased vascularity in the bilateral testis and bilateral epididymis; recommend clinical correlation for an infectious/inflammatory process, and a short-term follow-up ultrasound for reevaluation. Minimally complicated small bilateral hydroceles with floating debris, that could be seen with superimposed infection.
[2023-03-14 10:04] VITALS: BP 140/71; PULSE 69; RESP 19; TEMP 36.6; O2SAT 99; BMI 37.4
[2023-03-14 10:25] LABS: MANUAL DIFF FLAG NO
[2023-03-14 10:27] LABS: Basophils Percent Auto 0.4 % (0-2); Eosinophils Absolute Auto 0.1 X10*3/uL (0.0-0.4); Hematocrit 44.7 % (42.0-52.0); Hemoglobin 14.4 g/dl (14.0-18.0); Imm Gran Abs Auto 0.02 X10*3/uL (0.00-0.03); Imm Gran Pct Auto 0.3 % (0.0-0.4); Lymphocytes Absolute Auto 1.9 X10*3/uL (1.2-4.9); Lymphocytes Percent Auto 26.8 % (20-40); Mean Corpuscular HGB Conc 32.2 g/dl (31.0-36.0); Mean Corpuscular Hemoglobin 26.9 pg (27.0-33.0); Mean Corpuscular Volume 83.4 fL (80.0-98.0); Mean Platelet Volume 10.2 fL (9.4-12.4); Monocytes Absolute Auto 0.4 X10*3/uL (0.1-1.2); Monocytes Percent Auto 5.4 % (2-11); Neutrophils Absolute Auto 4.7 x10*3/uL (2.0-8.3); Neutrophils Percent Auto 66.1 % (45-73); Platelet Count 239 X10*3/uL (160-400); Red Blood Count 5.36 X10*6/uL (4.60-5.80); Red Cell Distribution Width 12.3 % (11.0-16.0)
[2023-03-14 10:30] LABS: Appearance Urine Clear; Color Urine Yellow; Glucose Urine UA Negative (Negative); Leukocyte Esterase Urine Negative (Negative); Nitrite Urine Negative (Negative); Specific Gravity - Urine 1.025 (1.005-1.025); Urine Blood Negative (Negative); Urine Ketones Negative (Negative); Urine Protein Negative (Neg-Trace)
[2023-03-14 10:50] LABS: Alanine Aminotransferase 17 U/L (0-40); Albumin Level 4.5 g/dL (3.5-5.0); Alkaline Phosphatase 88 U/L (39-117); Anion Gap 12 (12-20); Aspartate Amino Transferase 15 U/L (5-37); Bilirubin Direct 0.2 mg/dL (0.0-0.5); Bilirubin Total 0.5 mg/dL (0.0-1.0); Blood Urea Nitrogen 11 mg/dL (9-16); Carbon Dioxide 26 mmol/L (22-29); Chloride 104 mmol/L (96-108); Creatinine Clr Calc Pharmacy 149.1; Estimated Glomerular Filt Rate > 60; Glucose Random 126 mg/dL (60-115); Lipase 11 U/L (8-78); Potassium 4.4 mmol/L (3.3-5.1); Sodium 138 mmol/L (135-145); Total Protein 8.6 g/dL (6.5-8.0)
--- NOTE | 2023-03-14 14:56 | ED.ABDPAIN ---
HPI - Abdominal Pain General Chief Complaint: Abdominal Pain Stated Complaint: severe stomach pain Time Seen by Provider: 03/14/23 14:47 Source: patient Mode of arrival: ambulatory Limitations: no limitations History of Present Illness HPI narrative: 42-year-old male presents emergency department with abdominal pain pain was initially in the right lower quadrant started 3 days ago. States it has gradually gotten worse now it is in his epigastric area was of right flank and right testicle. He denies any falls or injuries he denies having this problem past he did have a sleeve gastrectomy for weight loss 2 years ago. He has been taking [id number] pills for acid reflux without any relief he states he has been able to eat and drink normally. Still having normal bowel movements. MD elicited complaint: abdominal pain Related Data Home Medications Medication Instructions Recorded Confirmed Celebrate Saran+D PO BID 08/18/21 08/18/21 Celebrate MVI PO DAILY 08/18/21 08/18/21 Previous Rx's Medication Instructions Recorded cyclobenzaprine 5 mg tablet 5 mg PO TID PRN rib pain 7 days 08/11/22 #21 tabs naproxen 500 mg tablet 500 mg PO BID 7 days #14 tabs 08/11/22 doxycycline hyclate 100 mg capsule 100 mg PO BID Cellulitis #20 caps 03/14/23 Allergies Allergy/AdvReac Type Severity Reaction Status Date / Time tree and shrub pollen Allergy Mild Itchy Eyes Verified 03/14/23 10:04 Review of Systems Review of Systems Review of systems: General: Patient denies any fever chills recent illness or falls Musculoskeletal: Denies back pain or body aches or other injuries HEENT: denies headache, runny nose, ear pain Respiratory: denies shortness of breath, cough Cardiovascular: no chest pain or palpitations : denies dysuria, frequency Abdomen: no nausea vomiting right-sided testicle and right-sided abdominal pain Extremities: no swelling, no pain Skin: no diaphoresis Yes all other systems are reviewed and are negative [facility] Past Medical History Medical History Abnormal EKG BMI 38.0-38.9,adult COVID-19 vaccine series completed Epigastric pain Erosive esophagitis GERD (gastroesophageal reflux disease) IBS (irritable bowel syndrome) Incomplete right bundle branch block (RBBB) LLQ pain Nausea Obesity JAMESON (obstructive sleep apnea) Preop cardiovascular exam RBBB Snoring Steatosis, liver Vitamin A deficiency Vitamin B12 deficiency Vitamin D deficiency Well adult exam Surgical History History of artificial eye lens History of sleeve gastrectomy History of weight loss surgery Hx of colonoscopy Hx of endoscopy Family History Family History Father Headache, migraine Mother HTN (hypertension) Paternal Grandmother Diabetes Paternal Aunt Cancer Social History Social History Household Members: Family Housing: House Are you a primary caregivers non medical to a significant other at home: No Do you presently have visiting nurse or other home services: No Alcohol intake: current Alcohol intake frequency: does not drink Patient Tobacco Use Status: Never used Tobacco Smoked in Last 30 Days: No e-Cigarette/Vaping Use: Never Used Second Hand Smoke Exposure: No Use of substances other than those prescribed or required for medical reasons: No Advance Directives: No service: No Current occupational status: employed Current occupation: [employer] Physical Exam ED Vital Signs: Vital Signs - 24 hr 03/14/23 10:04 03/14/23 15:00 03/14/23 16:55 Temperature 98 F Pulse Rate 69 58 51 Respiratory Rate 19 18 18 Blood Pressure 140/71 H 143/80 H 143/75 H Pulse Oximetry 99 99 100 Oxygen Delivery Method Room Air Room Air Room Air BMI result Body Mass Index 37.4 General: Well-appearing well-nourished in no signs of distress HEENT: Normocephalic atraumatic Neck: No signs of JVD, no masses no tenderness or lymphadenopathy Cardiovascular: Regular rate and rhythm Respiratory: Clear to auscultation bilaterally Abdomen: Soft might have right lower quadrant tenderness with guarding no masses Testes: Testicular exam performed patient was tender to palpation of the right testicle it was not high riding and mobile Extremities: Normal pedal pulses no signs of edema Skin: Dry warm no rashes Back: No tenderness full ROM Course Course Course Narrative: US showed concerns for epididymitis the patient was started on Rocephin and was sent home on doxycycline. Patient was explained this. Patient was then reassessed CT does not show any acute disease process I will send patient home on doxycycline for the next 2 weeks to have the patient follow-up with his doctor. Medical Decision Making Medical Decision Making [facility] Narrative: I have sent the patient for CT scan with the patient morphine Tylenol and fluids labs are unremarkable send patient for ultrasound and CT. Differential Diagnosis Differential Diagnoses: The differential diagnosis associated with the presentation includes Acute post obstructive pathology due to previous gastrectomy small-bowel obstruction dehydration testicular pain testicular torsion varicocele epididymitis kidney stone appendicitis Admission/Observation Consideration of admission/observation: Escalation of care including admission/observation considered Lab Data [facility] Lab Attestation statement: I reviewed the patient's lab results. 03/14/23 10:20 03/14/23 10:20 Labs: Lab Results 03/14/23 Range/Units 10:20 WBC 7.0 (4.8-10.8) X10*3/uL RBC 5.36 (4.60-5.80) X10*6/uL Hgb 14.4 (14.0-18.0) g/dl Hct 44.7 (42.0-52.0) % MCV 83.4 (80.0-98.0) fL MCH 26.9 L (27.0-33.0) pg MCHC 32.2 (31.0-36.0) g/dl RDW 12.3 (11.0-16.0) % Plt Count 239 (160-400) X10*3/uL MPV 10.2 (9.4-12.4) fL Immature Gran % (Auto) 0.3 (0.0-0.4) % Neut % (Auto) 66.1 (45-73) % Lymph % (Auto) 26.8 (20-40) % [place] % (Auto) 5.4 (2-11) % Eos % (Auto) 1.0 (0-4) % Baso % (Auto) 0.4 (0-2) % Lymph # (Auto) 1.9 (1.2-4.9) X10*3/uL [place] # (Auto) 0.4 (0.1-1.2) X10*3/uL Eos # (Auto) 0.1 (0.0-0.4) X10*3/uL Baso # (Auto) 0.0 (0.0-0.2) X10*3/uL Abs Immat Gran (auto) 0.02 (0.00-0.03) X10*3/uL Absolute Neuts (auto) 4.7 (2.0-8.3) x10*3/uL Absolute Nucleated RBC 0.000 (0.0-0.012) X10*3/uL Nucleated RBC % (auto) 0.0 (0.0-0.2) /100WBC Sodium 138 (135-145) mmol/L Potassium 4.4 (3.3-5.1) mmol/L Chloride 104 (96-108) mmol/L Carbon Dioxide 26 (22-29) mmol/L Anion Gap 12 (12-20) BUN 11 (9-16) mg/dL Creatinine 0.74 (0.5-1.4) mg/dL Estim Creat Clear Calc 149.1 Estimated GFR > 60 Random Glucose 126 H (60-115) mg/dL Calcium 10.0 (8.4-10.2) mg/dL Total Bilirubin 0.5 (0.0-1.0) mg/dL Direct Bilirubin 0.2 (0.0-0.5) mg/dL AST 15 (5-37) U/L ALT 17 (0-40) U/L Alkaline Phosphatase 88 (39-117) U/L Total Protein 8.6 H (6.5-8.0) g/dL Albumin 4.5 (3.5-5.0) g/dL Lipase 11 (8-78) U/L Urine Color Yellow Urine Appearance Clear Urine pH 7.0 (5.0-9.0) Ur Specific [place] 1.025 (1.005-1.025) Urine Protein Negative (Neg-Trace) mg/dL Urine Glucose (UA) Negative (Negative) mg/dL Urine Ketones Negative (Negative) mg/dL Urine Blood Negative (Negative) Urine Nitrite Negative (Negative) Ur Leukocyte Esterase Negative (Negative) Independent Interpretation I performed an independent interpretation of an: Ultrasound and CT Scan Radiology Impression Discussion of test interpretation with radiology: I have reviewed the radiologist's reading. External Record Review External record reviewed: Inpatient record and Office record Prescription Management I considered prescription management with: Pain Medication Chronic Conditions Morbid obesity year old bowel syndrome status post gastrectomy here Medications Administered Discontinued Medications Generic Name Dose Route Start Last Admin Trade Name Freq PRN Reason Stop Dose Admin Acetaminophen 650 mg 03/14/23 14:53 03/14/23 15:13 Acetaminophen 325 Mg Tablet PO 03/14/23 14:54 650 mg ONCE ONE Administration Doxycycline Monohydrate 100 mg 03/14/23 16:23 03/14/23 16:51 Doxycycline Monohydrate 100 Mg Capsule PO 03/14/23 16:24 100 mg ONCE ONE Administration Sodium Chloride 1,000 mls @ 999 mls/hr 03/14/23 15:00 03/14/23 16:52 Ns IV 03/14/23 16:00 Infused .Q1H1M SAMI Infusion Ceftriaxone Sodium 500 mg/ 50 mls @ 100 mls/hr 03/14/23 16:23 03/14/23 16:51 Sodium Chloride IV 03/14/23 16:52 100 mls/hr ONCE ONE Administration Iohexol 100 ml 03/14/23 17:14 03/14/23 17:15 Iohexol 350 Mg/Ml 100 Ml Infus..Btl IV 03/14/23 17:15 85 ml ONCE ONE Administration Morphine Sulfate 4 mg 03/14/23 14:53 03/14/23 15:13 Morphine Sulfate 4 Mg/Ml Cartridge IVPUSH 03/14/23 14:54 4 mg ONCE ONE Administration Protocol Discharge Plan Discharge Clinical Impression: Abdominal pain, Epididymitis with no abscess Patient Disposition: Home, Self-Care Additional Instructions: You were seen today for abdominal pain. Epididymitis by ultrasound. He underwent a CT scan and labs which are unremarkable. Please call follow-up care doctor if you have any other concerns please do not hesitate to come back to emergency department for Prescriptions: New doxycycline hyclate 100 mg capsule 100 mg PO BID Qty: 20 0RF No Action naproxen 500 mg tablet 500 mg PO BID 7 Days Qty: 14 0RF cyclobenzaprine 5 mg tablet 5 mg PO TID PRN (Reason: rib pain) 7 Days Qty: 21 0RF Celebrate MVI PO DAILY Celebrate Saran+D PO BID
[2023-03-14 15:00] VITALS: BP 143/80; PULSE 58; RESP 18; O2SAT 99
[2023-03-14] MEDS: Acetaminophen 325 MG TABLET 650 MG PO (15:13)
[2023-03-14] MEDS: 0.9 % Sodium Chloride 1,000 ML 999 ML IV (15:13)
[2023-03-14] MEDS: Morphine Sulfate 4 MG/ML CARTRIDGE IVPUSH (15:13)
--- NOTE | 2023-03-14 15:18 | PC.NURSE ---
pt is alert and oriented, skin appropriate for ethnicity, respirations even and unlabored, pt reports abd pain all over and radiates to the testicles and back for the last 4 days and some intermittent nausea, abd soft but tender
[2023-03-14] MEDS: Doxycycline Monohydrate 100 MG CAPSULE PO (16:51)
[2023-03-14 16:55] VITALS: BP 143/75; PULSE 51; RESP 18; O2SAT 100
[2023-03-14] MEDS: iohexoL 350 MG/ML 100 ML INFUS..BTL IV (17:15)
== END 2023-03-14 18:17 | disposition home or self-care (01) ==
PROVIDERS: Emergency Provider Student in an Organized Health Care Education/Training Program; PCP Hospitalist
DX: R10.9 Unspecified abdominal pain (principal); N45.1 Epididymitis; Z98.84 Bariatric surgery status
CPT/HCPCS: 36415; 74177; 76870; 80048; 80076; 81003; 83690; 85025; 93975; 96361; 96365; 96375; 99284; 99285; J0696; J2270; Q9967

== ENCOUNTER 2024-08-10 09:53 | Outpatient (AMB) | payer BC, SELFPAY ==
--- NOTE | 2024-08-10 09:56 | MHC.OFFVISWM ---
VS Expanded 08/10/24 10:02 BP 143/65 H Blood Pressure Location Rt brachial Blood Pressure Position Sitting Pulse 66 Pulse Source Pulse Oximeter Temp 98.1 F Temperature Source Temporal Artery Scan Pulse Oximetry 96 Oxygen Delivery Method Room Air Height 5 ft 6 in Weight 239 lb BMI 38.6 Body Fat % 34.5 Body Fat Mass 82.4 Fat Free Mass 156.6 Visceral Fat Rating 18.0 Body Water % 48.1 Body Water Mass 114.8 Muscle Mass/Score 148.8 Basal Metabolic Rate/Score 2,141 Intake Visit Reasons: (OV) PO LSG 02/16/2021 *GLP-1* Funeral Pre Arrangement Specialist Required: No Allergies tree and shrub pollen Allergy (Mild, Verified 08/10/24 10:00) Itchy Eyes Medication List - Last Reconciled 08/10/24 by BAY Elder [Celebrate MVI PO DAILY] HPI Comments Details: This?a?43?yo male who is s/p LSG without hiatal hernia repair on?02/16/21 by Lewis Arce. Presents for 3 year 6 month post op visit. He was last seen in the office on 08/18/2021 with a weight of 184.6 lb and a BMI of 29.7. Weight today is 239 lb with a BMI of 38.6. Weight at the time of his procedure was 238.4. He has not been seen in 3 years due to busy schedule . Not following any reccomendedmeal plan. 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 Pure protein shake 1 scoop in fairlife milk 1pm? Pure protein? shake Dinner:? tuna, chicken, lettuce? - 4 forks of each, 2 pure protein bars Drinking 48 oz water daily Exercise plan: PF membership Any post op complications: none JAMESON: resolved DM: never HTN: never Hyperlipidemia: never GERD:?0-5 scale ??0 = no symptoms ??1 = symptoms noticeable but not bothersome 2 =symptoms bothersome but not daily ? 3 = symptoms bothersome and daily 4 = symptoms affect daily activities 5 = symptoms are incapacitating, unable to do daily activities ? How bad is the heartburn: 0 ? Heartburn while lying down: 0 ? Heartburn when standing up: 0 ? Heartburn after meals: 0 ? Does heartburn change your diet: 0 ? Does heartburn wake you up from sleep: 0 ? Do you have difficulty swallowin ? Do you have pain with swallowin ? If you take medicine for your reflux, does this affect your daily life: 0 Satisfaction with present condition - satisfied or not satisfied: dissatisfied [facility] Medical History Abnormal EKG BMI 38.0-38.9,adult COVID-19 vaccine series completed Epigastric pain Erosive esophagitis GERD (gastroesophageal reflux disease) IBS (irritable bowel syndrome) Incomplete right bundle branch block (RBBB) LLQ pain Nausea Obesity JAMESON (obstructive sleep apnea) Preop cardiovascular exam RBBB Snoring Steatosis, liver Vitamin A deficiency Vitamin B12 deficiency Vitamin D deficiency Well adult exam Surgical History History of sleeve gastrectomy History of weight loss surgery History of artificial eye lens Hx of colonoscopy Hx of endoscopy Family History Father Headache, migraine Mother HTN (hypertension) Paternal Grandmother Diabetes Paternal Aunt Cancer Social History (Updated 08/10/24 @ 10:01 by Nneka Garcia CMA) Household Members: Family Housing: House Are you a primary janitor caretaker to a significant other at home: No Do you presently have visiting nurse or other home services: No Alcohol intake: former Patient Tobacco Use Status: Never used Tobacco e-Cigarette/Vaping Use: Never Used Second Hand Smoke Exposure: No service: No Current occupational status: employed Current occupation: [employer] Physical Exam Vital Signs: Last Vital Signs Temp 98.1 F 08/10/24 10:02 Const General: cooperative and no acute distress Orientation/consciousness: patient oriented x3 Resp Effort & Inspection: normal respiratory effort Auscultation: clear to auscultation bilaterally Cardio Rate: regular rate Rhythm: regular rhythm GI Inspection: Yes normal to inspection and Yes incision (well healed) Palpation (GI): Soft to palpation and no masses Neuro General: patient oriented x3 Assessment & Plan Assessment & Plan (1) S/P laparoscopic sleeve gastrectomy: Code(s): Z98.84 - Bariatric surgery status Category: Surgical Plan: Patient has not been seen in the office in approximately 3 years. Discussed the importance of returning to a structured meal plan and exercise plan. He is unable to exercise during the 5 day work week although he is able to walk a proximally 30-60 minutes per day during those times at the [employer]. We discussed increasing his pace of walking during those times. Additionally, he can go to [place] on the weekends. He will try to achieve 500 calories burn or more per day on Saturday and Saturday. He was given information regarding the right BMI babak. we will have him return to the office in a proximally 4 weeks. Orders: Orders Insulin Today E66.9 - Obesity, unspecified, K76.0 - Fatty (change of) liver, not elsewhere classified, Z98.84 - Bariatric surgery status Hemoglobin A1c Today E66.9 - Obesity, unspecified, K76.0 - Fatty (change of) liver, not elsewhere classified, Z98.84 - Bariatric surgery status Complete Blood Count Auto Diff Today E66.9 - Obesity, unspecified, K76.0 - Fatty (change of) liver, not elsewhere classified, Z98.84 - Bariatric surgery status Lipid Panel Today E66.9 - Obesity, unspecified, K76.0 - Fatty (change of) liver, not elsewhere classified, Z98.84 - Bariatric surgery status Comprehensive Met. Panel Today E66.9 - Obesity, unspecified, K76.0 - Fatty (change of) liver, not elsewhere classified, Z98.84 - Bariatric surgery status Vitamin B12 and Folate Today E66.9 - Obesity, unspecified, K76.0 - Fatty (change of) liver, not elsewhere classified, Z98.84 - Bariatric surgery status Zinc Today E66.9 - Obesity, unspecified, K76.0 - Fatty (change of) liver, not elsewhere classified, Z98.84 - Bariatric surgery status C Reactive Protein Today E66.9 - Obesity, unspecified, K76.0 - Fatty (change of) liver, not elsewhere classified, Z98.84 - Bariatric surgery status Ferritin Today E66.9 - Obesity, unspecified, K76.0 - Fatty (change of) liver, not elsewhere classified, Z98.84 - Bariatric surgery status IRON PROFILE Today E66.9 - Obesity, unspecified, K76.0 - Fatty (change of) liver, not elsewhere classified, Z98.84 - Bariatric surgery status Vitamin B1 Today E66.9 - Obesity, unspecified, K76.0 - Fatty (change of) liver, not elsewhere classified, Z98.84 - Bariatric surgery status Vitamin A Today E66.9 - Obesity, unspecified, K76.0 - Fatty (change of) liver, not elsewhere classified, Z98.84 - Bariatric surgery status TSH reflex Free T4 Today E66.9 - Obesity, unspecified, K76.0 - Fatty (change of) liver, not elsewhere classified, Z98.84 - Bariatric surgery status Vitamin D 25-OH Total Today E66.9 - Obesity, unspecified, K76.0 - Fatty (change of) liver, not elsewhere classified, Z98.84 - Bariatric surgery status
[2024-08-10 10:02] VITALS: BP 143/65; PULSE 66; TEMP 36.7; O2SAT 96; BMI 38.6
--- OUTSIDE RECORDS SUMMARY | 2024-08-10 10:49 | XMS_ITS | Clinical Summary ---
Author Organization [employer] [facility] ity Address [address] [place] [address] Care Team Providers Care Inspector Final Assembly Conveyor Line Name Role Phone Unavailable Primary Care Provider Unavailabl e Social History Tobacco Use Types Packs/Day Years Used Date Smoking Tobacco: Never Assessed Sex and Gender Information Value Date Recorded Sex Assigned at Not on file Legal Sex Male 2:27 AM EST Gender Identity Not on file Sexual Orientation Not on file Plan of Treatment Health Maintenance Due Date Last Done Comments DTaP,Tdap,and Td Vaccines (1 - Tdap) 2000 Hepatitis B Vaccines (1 of 3 - 19+ 3-dose series) 2000 COVID-19 Vaccine (2023-2 5 season) 2024 Influenza Vaccine (#1) 2024 Cholesterol Screening (Lipid Panel) 03/28/2024 Depression Screening 03/28/2024 HIV Screening 03/28/2024 Hepatitis C Screening 03/28/2024 Social Influencers of Health Screening 03/28/2024 HIB Vaccines Aged Out No longer eligi ble based on patient's age to complete this topic HPV Vaccines Aged Out No longer eligi ble based on patient's age to complete this topic Hepatitis A Vaccines Aged Out No long er eligible based on patient's age to complete this topic IPV Vaccines Aged Out No longer eligi ble based on patient's age to complete this topic MMR Vaccines Aged Out No longer eligi ble based on patient's age to complete this topic Meningococcal ACWY Vaccine Aged Out N o longer eligible based on patient's age to complete this topic Meningococcal B Vacine Aged Out No lo nger eligible based on patient's age to complete this topic Pneumococcal Vaccine: Pediat rics (0 to 5 Years) and At-Risk Patients (6 to 64 Years) Aged Out No longer eligible b ased on patient's age to complete this topic RSV Immunization Patients Un miesha 20 months Aged Out No longer eligible b ased on patient's age to complete this topic Varicella Vaccines Aged Out No longer eligible based on patient's age to complete this topic
== END 2024-08-10 10:30 | disposition home or self-care (01) ==
PROVIDERS: PCP Hospitalist; Visit Provider Physician Assistant Surgical
DX: E66.812 Obesity, class 2 (principal); Z68.38 Body mass index [BMI] 38.0-38.9, adult; Z90.3 Acquired absence of stomach [part of]; Z98.84 Bariatric surgery status
CPT/HCPCS: 99214

== ENCOUNTER 2024-08-10 09:53 | Outpatient (REF) | payer BC, SELFPAY ==
[2024-08-10 10:45] LABS: MANUAL DIFF FLAG NO
[2024-08-10 11:41] LABS: Basophils Percent Auto 0.5 % (0-2); Eosinophils Absolute Auto 0.2 X10*3/uL (0.0-0.4); Eosinophils Percent Auto 2.4 % (0-4); Hematocrit 44.9 % (42.0-52.0); Hemoglobin 14.3 g/dl (14.0-18.0); Imm Gran Abs Auto 0.03 X10*3/uL (0.00-0.03); Imm Gran Pct Auto 0.5 % (0.0-0.4); Lymphocytes Absolute Auto 2.2 X10*3/uL (1.2-4.9); Lymphocytes Percent Auto 34.9 % (20-40); Mean Corpuscular HGB Conc 31.8 g/dl (31.0-36.0); Mean Corpuscular Hemoglobin 26.1 pg (27.0-33.0); Mean Corpuscular Volume 82.1 fL (80.0-98.0); Mean Platelet Volume 10.2 fL (9.4-12.4); Monocytes Absolute Auto 0.5 X10*3/uL (0.1-1.2); Monocytes Percent Auto 7.8 % (2-11); Neutrophils Absolute Auto 3.3 x10*3/uL (2.0-8.3); Neutrophils Percent Auto 53.9 % (45-73); Platelet Count 255 X10*3/uL (160-400); Red Blood Count 5.47 X10*6/uL (4.60-5.80); Red Cell Distribution Width 12.8 % (11.0-16.0); White Blood Count 6.2 X10*3/uL (4.8-10.8)
[2024-08-10 11:53] LABS: Estimated Average Glucose 117 mg/dL; Hemoglobin A1c % 5.7 % (<6.0)
--- OUTSIDE RECORDS SUMMARY | 2024-08-10 11:54 | XMS_ITS | Clinical Summary ---
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
[2024-08-10 12:47] LABS: Alanine Aminotransferase 30 U/L (0-40); Albumin Level 4.4 g/dL (3.5-5.0); Alkaline Phosphatase 93 U/L (39-117); Anion Gap 9 (12-20); Aspartate Amino Transferase 23 U/L (5-37); Bilirubin Total 0.7 mg/dL (0.0-1.0); Blood Urea Nitrogen 16 mg/dL (9-16); C Reactive Protein 1.12 mg/dL (< or = 0.50); Calcium 9.7 mg/dL (8.4-10.2); Carbon Dioxide 28 mmol/L (22-29); Chloride 110 mmol/L (96-108); Cholesterol 142 mg/dL (<200); Estimated Glomerular Filt Rate > 60; Glucose Random 99 mg/dL (60-115); HDL Cholesterol 47 mg/dL (>40); Iron 47 mcg/dL (45-160); LDL Cholesterol Calculated 86 mg/dL (<100); Percent Iron Saturation 18 % (15-50); Potassium 4.2 mmol/L (3.3-5.1); Sodium 143 mmol/L (135-145); Total Iron Binding Capacity 259 mcg/dL (228-428); Total Protein 8.5 g/dL (6.5-8.0); Triglycerides 46 mg/dL (<150); Unsaturated Iron Binding 212 ug/dL
[2024-08-10 13:07] LABS: Ferritin 173 ng/mL (20-250); TSH reflex Free T4 1.96 uIU/mL (0.32-4.0); Vitamin D 25-OH Total 22.1 ng/mL (>30)
[2024-08-10 13:09] LABS: Folate 8.4 ng/mL (> or = 4.0); Vitamin B12 488 pg/mL (200-900)
[2024-08-10 13:39] LABS: Insulin 15 uU/mL (2-29)
[2024-08-12 22:49] LABS: Vitamin A 34 mcg/dL (38-98)
[2024-08-12 23:23] LABS: Zinc 62 mcg/dL (60-130)
[2024-08-18 01:34] LABS: Vitamin B1 8 nmol/L (8-30)
== END 2024-08-10 09:54 | disposition home or self-care (01) ==
LOC: HO.LAB 09:53
PROVIDERS: PCP Hospitalist; Visit Provider Physician Assistant Surgical
DX: E66.9 Obesity, unspecified (principal); K76.0 Fatty (change of) liver, not elsewhere classified; Z98.84 Bariatric surgery status; Z13.1 Encounter for screening for diabetes mellitus
CPT/HCPCS: 36415; 80053; 80061; 82306; 82607; 82728; 82746; 83036; 83525; 83540; 84425; 84443; 84590; 84630; 85025; 86140